=== PATIENT | female | born 1955 | race African-American/Black ===

== ENCOUNTER 2018-05-19 12:18 | Inpatient (IN) ==
[2018-05-19] MEDS ORDERED: Adenosine Inj 6 MG/2 ML Syringe IV.PUSH ONE ×2 (12:41→13:11)
--- NOTE | 2018-05-19 13:18 | ED ---
HPI General Chief Complaint: Chest Pain Stated Complaint: Cardiac Time Seen by Provider: 05/19/18 12:35 History of Present Illness HPI narrative: 62-year-old -[place] female presented with palpitations started earlier today, denies any chest pain, no shortness of breath. Patient has history of renal failure, renal transplant in 2009, recently she is back on dialysis Sunday and Sunday, last dialysis done on Sunday. Patient presented with heart rate 150. I was called right away to see the patient. She was diagnosed with SVT and treated accordingly. Related Data Home Medications Medication Instructions Recorded Confirmed B complex-vitamin C-folic acid 1 tab PO DAILY 05/19/18 05/19/18 [Dialyvite] calcium acetate 0 mg DIRECTED 05/19/18 05/19/18 cinacalcet [Sensipar] 0 mg PO DAILY 05/19/18 05/19/18 clonidine HCl 0.1 mg PO PRN 05/19/18 05/19/18 diltiazem HCl 180 mg PO DAILY 05/19/18 05/19/18 furosemide 40 mg PO DAILY PRN 05/19/18 05/19/18 lisinopril 20 mg PO DAILY 05/19/18 05/19/18 metoprolol tartrate 100 mg PO BID 05/19/18 05/19/18 minoxidil 0 mg PO BID 05/19/18 05/19/18 sevelamer carbonate [Renvela] 800 mg PO QID 05/19/18 05/19/18 warfarin 10 mg PO DAILY 05/19/18 05/19/18 Allergies Allergy/AdvReac Type Severity Reaction Status Date / Time adhesive Allergy Severe BLISTERS Unverified 05/19/18 12:45 chlorpheniramine Allergy Severe Hives Unverified 05/19/18 12:45 Review of Systems ROS: all other systems reviewed are negative Cardiovascular Reports palpitations PMFSH Medical History Medical History Acute renal failure on dialysis (Acute) Afib (Acute) CHF (congestive heart failure) (Acute) Kidney transplant complication (Acute) Social History Social History Substance History: No History of Abuse Second Hand Smoke Exposure: No Smoking Status: Never smoker How Often Do You Have a Drink Containing Alcohol: Never Recent Travel in [facility] within the Last 8 Weeks: No Recent Out of Country Travel within the Last 8 Weeks: No Immunization History Tetanus Immunization: Unsure Hx Influenza Vaccine This Season: No Exam Narrative Exam Narrative: GENERAL: 62 years old female with tachycardia SKIN: Focused skin assessment warm/dry. HEAD: Atraumatic. Normocephalic. EYES: Pupils equal and round. No scleral icterus. No injection or drainage. ENT: No nasal bleeding or discharge. Mucous membranes pink and moist. NECK: Trachea midline. No JVD. CARDIOVASCULAR: Regular rate and rhythm. No murmur appreciated. RESPIRATORY: No accessory muscle use. Clear to auscultation. Breath sounds equal bilaterally. GASTROINTESTINAL: Abdomen soft, non-tender, nondistended. Hepatic and splenic margins not palpable. MUSCULOSKELETAL: No obvious deformities. No clubbing. No cyanosis. No edema. NEUROLOGICAL: Awake and alert. No obvious cranial nerve deficits. Motor grossly within normal limits. Normal speech. PSYCHIATRIC: Appropriate mood and affect; insight and judgment normal. Course Initial Documented Vital Signs Temperature 98.2 F 05/19/18 12:23 Pulse Rate 156 H 05/19/18 12:23 Respiratory Rate 18 05/19/18 12:23 Blood Pressure 116/73 05/19/18 12:23 Pulse Oximetry 97 05/19/18 12:23 Last Documented Vital Signs Temperature 98 F 05/19/18 12:26 Pulse Rate 91 H 05/19/18 15:32 Respiratory Rate 18 05/19/18 15:32 Blood Pressure 160/98 H 05/19/18 15:32 Pulse Oximetry 98 05/19/18 15:32 Medical Decision Making [facility] Narrative Medical decision making narrative: adenosine for SVT conversion Blood work Repeated EKG Evaluation Labs noted, patient has borderline troponin 0.06, chest pain resolved Case discussed with Dr. Campos agreed to admit the patient Medical Screen Exam Complete: Yes Emergency Medical Condition: Yes Differential Diagnosis Differential Diagnosis: Supraventricular tachycardia rule out NC Lab Data Result diagrams: 05/19/18 13:23 05/19/18 13:23 Lab Results 05/19/18 05/19/18 05/19/18 Range/Units 13:23 13:23 13:23 WBC 4.6 (4.0-11.0) th/mm3 RBC 3.50 L (4.00-5.30) mil/mm3 Hgb 11.1 L (11.6-15.3) gm/dL Hct 33.2 L (35.0-46.0) % MCV 95.1 (80.0-100.0) fL MCH 31.8 (27.0-34.0) pg MCHC 33.4 (32.0-36.0) % RDW 14.2 (11.6-17.2) % Plt Count 168 (150-450) th/mm3 MPV 8.1 (7.0-11.0) fL Neut % (Auto) 49.7 (16.0-70.0) % Lymph % (Auto) 34.2 (9.0-44.0) % Larue % (Auto) 5.5 (0.0-8.0) % Eos % (Auto) 9.7 H (0.0-4.0) % Baso % (Auto) 0.9 (0.0-2.0) % Neut # (Auto) 2.3 (1.8-7.7) th/mm3 Lymph # (Auto) 1.6 (1.0-4.8) th/mm3 Larue # (Auto) 0.3 (0.0-0.9) th/mm3 Eos # (Auto) 0.4 (0.0-0.4) th/mm3 Baso # (Auto) 0.0 (0.0-0.2) th/mm3 WBC Differential . Differential Comment Auto diff final PT 10.8 (9.8-11.6) sec INR 1.1 Ratio APTT 25.4 (24.3-30.1) sec Sodium 142 (136-145) meq/L Potassium 3.7 (3.5-5.1) meq/L Chloride 101 (98-107) meq/L Carbon Dioxide 25.7 (21.0-32.0) meq/L Anion Gap 15 (5-15) meq/L BUN 58 H (7-18) mg/dL Creatinine 10.17 H* (0.50-1.00) mg/dL Estimated GFR 5 L (>89) mL/min Random Glucose 104 (74-106) mg/dL Calcium 9.0 (8.5-10.1) mg/dL Total Bilirubin 0.7 (0.2-1.0) mg/dL AST 42 H (15-37) U/L ALT 34 (10-53) U/L Alkaline Phosphatase 96 (45-117) U/L Troponin I 0.06 H (0.02-0.05) ng/mL B-Natriuretic Peptide (0-100) pg/mL Total Protein 7.5 (6.4-8.2) g/dL Albumin 3.6 (3.4-5.0) g/dL 05/19/18 Range/Units 13:23 WBC (4.0-11.0) th/mm3 RBC (4.00-5.30) mil/mm3 Hgb (11.6-15.3) gm/dL Hct (35.0-46.0) % MCV (80.0-100.0) fL MCH (27.0-34.0) pg MCHC (32.0-36.0) % RDW (11.6-17.2) % Plt Count (150-450) th/mm3 MPV (7.0-11.0) fL Neut % (Auto) (16.0-70.0) % Lymph % (Auto) (9.0-44.0) % Larue % (Auto) (0.0-8.0) % Eos % (Auto) (0.0-4.0) % Baso % (Auto) (0.0-2.0) % Neut # (Auto) (1.8-7.7) th/mm3 Lymph # (Auto) (1.0-4.8) th/mm3 Larue # (Auto) (0.0-0.9) th/mm3 Eos # (Auto) (0.0-0.4) th/mm3 Baso # (Auto) (0.0-0.2) th/mm3 WBC Differential Differential Comment PT (9.8-11.6) sec INR Ratio APTT (24.3-30.1) sec Sodium (136-145) meq/L Potassium (3.5-5.1) meq/L Chloride (98-107) meq/L Carbon Dioxide (21.0-32.0) meq/L Anion Gap (5-15) meq/L BUN (7-18) mg/dL Creatinine (0.50-1.00) mg/dL Estimated GFR (>89) mL/min Random Glucose (74-106) mg/dL Calcium (8.5-10.1) mg/dL Total Bilirubin (0.2-1.0) mg/dL AST (15-37) U/L ALT (10-53) U/L Alkaline Phosphatase (45-117) U/L Troponin I (0.02-0.05) ng/mL B-Natriuretic Peptide 279 H (0-100) pg/mL Total Protein (6.4-8.2) g/dL Albumin (3.4-5.0) g/dL Imaging Data Radiologist's impression: Chest X-Ray 05/19/18 13:11 CONCLUSION: Clear lungs. Discharge Plan Discharge Disposition Patient Disposition: 30 Still Patient Discharge Condition Condition: Fair Discharge Details Discharge Comment: Patient presented with chest pain, borderline troponin, placed on observation under Dr. Hogan. Diagnosis: Atypical chest pain, SVT (supraventricular tachycardia), End stage chronic kidney disease Physicians Team ED Provider: Derick Suero Primary Care Provider: Marcus Campos Attending Provider: Marcus Campos Status ED Status: Discharged Discharge Information Discharge Date/Time: 05/19/18 17:35
[2018-05-19 13:43] LABS: Baso % (Auto) 0.9 % (0.0-2.0); Eos # (Auto) 0.4 th/mm3 (0.0-0.4); Eos % (Auto) 9.7 % (0.0-4.0); Hematocrit 33.2 % (35.0-46.0); Hemoglobin 11.1 gm/dL (11.6-15.3); Lymph # (Auto) 1.6 th/mm3 (1.0-4.8); Lymph % (Auto) 34.2 % (9.0-44.0); Mean Corpuscular HGB Conc 33.4 % (32.0-36.0); Mean Corpuscular Hemoglobin 31.8 pg (27.0-34.0); Mean Corpuscular Volume 95.1 fL (80.0-100.0); Mean Platelet Volume 8.1 fL (7.0-11.0); Mono # (Auto) 0.3 th/mm3 (0.0-0.9); Mono % (Auto) 5.5 % (0.0-8.0); Neut # (Auto) 2.3 th/mm3 (1.8-7.7); Neut % (Auto) 49.7 % (16.0-70.0); Platelet Count 168 th/mm3 (150-450); Red Cell Distribution Width 14.2 % (11.6-17.2); White Blood Count 4.6 th/mm3 (4.0-11.0)
[2018-05-19 13:53] LABS: Activated Partial Thrombo Time 25.4 sec (24.3-30.1); INR 1.1 Ratio; Prothrombin Time 10.8 sec (9.8-11.6)
--- NOTE | 2018-05-19 13:58 | XR ---
EXAM DATE: 05/19/2018 1:52 PM EDT AGE/SEX: 62 years / Female INDICATIONS: Chest pain. CLINICAL DATA: This is the patient's initial encounter. Patient reports that signs and symptoms have been present for 1 day and indicates a pain score of 0/10. MEDICAL/SURGICAL HISTORY: Congestive heart failure. None. COMPARISON: [facility] [place], CHEST SINGLE AP, 06/11/2016. . FINDINGS: Cardiomegaly. Calcified left AP window lymph nodes. Lungs are clear. Osseous structures are intact. CONCLUSION: Clear lungs. Electronically signed by: Alexandre Suazo MD 05/19/2018 1:57 PM EDT
[2018-05-19 14:02] LABS: Alanine Aminotransferase 34 U/L (10-53); Albumin 3.6 g/dL (3.4-5.0); Anion Gap 15 meq/L (5-15); Aspartate Aminotransferase 42 U/L (15-37); Blood Urea Nitrogen 58 mg/dL (7-18); Carbon Dioxide 25.7 meq/L (21.0-32.0); Chloride 101 meq/L (98-107); Glomerular Filtration Rate 5 mL/min (>89); Glucose,Random 104 mg/dL (74-106); Potassium 3.7 meq/L (3.5-5.1); Sodium 142 meq/L (136-145)
[2018-05-19 14:06] LABS: Alkaline Phosphatase 96 U/L (45-117); Total Protein 7.5 g/dL (6.4-8.2); Troponin I 0.06 ng/mL (0.02-0.05)
[2018-05-19] MEDS ORDERED: cloNIDine Susp (NICU) 20 MCG/ML 30 ML Bottle PO SCH (17:00)
[2018-05-19] MEDS ORDERED: Acetaminophen 325 MG Tablet PO PRN (18:06)
[2018-05-19] MEDS ORDERED: Bisacodyl 10 MG Supp RECTAL PRN (18:06)
[2018-05-19] MEDS: Calcium Acetate 667 MG Capsule PO SCH (18:30)
--- NOTE | 2018-05-19 18:47 | P.HPIM ---
History of Present Illness Service: [facility] Primary Care Physician: Marcus Campos DO Chief Complaint: heart racing History of Present Illness: This patient is a 60-year-old female who had a past medical history ESRD with kidney transplant, on hemodialysis every Sunday and Sunday, congestive heart failure with EF of 60-65% on 2D echo in August 2015, atrial fibrillation, and hypertension who presented to the emergency room with a complaint of racing heart, atrial fibrillation. Patient stated that her heart was decided to race with her not doing anything just sitting down. Patient stated this happened before last December while she was asleep and awoken with heart racing. This event also happened again in March. Patient denies any chest pain or shortness of breath and test at that time and just complaint of heart racing. Patient states that she is a dialysis patient, had a kidney transplant in 2009 that was implanted on the right side. At this time the resin remover is working her out for another kidney transplant and was scheduled for an elective heart catheterization for Sunday as part of the evaluation and requirement for the transplant. Patient is a hemodialysis patient on Wednesdays and Fridays. She has been managed by the resin remover Dr. Mayer. Her parts room assistant is Dr. Chavez. Patient seen and examined with Dr. Vernon in the room. Patient denies any heart racing at this time denies any pain, chest pain or shortness of breath, denies any nausea or vomiting, denies any headache or dizziness. Patient denies any fever chills - Diagnosis (1) Atrial fibrillation (2) Congestive heart failure (CHF) (3) Hypertension (4) Chronic kidney disease with in-center hemodialysis preferred by patient (5) History of kidney transplant Inpatient Certification: I certify that the inpatient services were ordered in accordance with Medicare regulations governing the order. This includes certification that hospital inpatient services are reasonable and necessary and in the case of services not specified as inpatient-only under 42 CFR 419.22(n), that they are appropriately provided as inpatient services in accordance to with the 2-midnight benchmark under 43 CFR 412.3(e) Estimated Total Length of Stay (Days): 3 Plans for Post Hospital Care: Home Review of Systems All other systems reviewed negative except as stated in [facility] - History History Provided By: Patient - Medical History Medical History: Medical History (Last Updated 05/19/18 @ 18:27 by CARLOTA Gonzalez) Acute renal failure on dialysis Afib CHF (congestive heart failure) Fistula Hypertension Kidney transplant complication - Surgical History Surgical History: Surgical History (Last Updated 05/19/18 @ 18:27 by CARLOTA Gonzalez) Kidney transplant recipient - Family History Family History: Family History (Last Updated 05/19/18 @ 18:28 by CARLOTA Gonzalez) Mother Stroke Heart attack ESRD on dialysis - Social History I have reviewed the patient's Social History: Yes - Tobacco History Second Hand Smoke Exposure: No Tobacco Use In Past 30 Days: No Smoking Status: Never smoker - Alcohol History How Often Do You Have a Drink Containing Alcohol: Never - Substance Use History Substance History: No History of Abuse - Travel History Recent Travel in the [place] Within the Last 8 Weeks: No Recent Travel Out of the Country Within the Last 8 Weeks: No - Immunization History Tetanus Immunization: Unsure Hx Influenza Vaccine This Season: No Medications and Allergies Active Medications: Active Medications Acetaminophen (Tylenol) 650 mg PO Q4H PRN PRN Reason: Temp > 100.4 Al Hydroxide/Mg Hydroxide (Milk Of Magnesia Liq) 30 ml PO Q12H PRN PRN Reason: Mild Constipation Bisacodyl (Dulcolax Supp) 10 mg RECTAL DAILY PRN PRN Reason: SEVERE CONSITIPATION Calcium Acetate (Phoslo) 667 mg PO TID [facility] Cinacalcet (Sensipar) 30 mg PO DAILY [facility] Clonidine HCl (Clonidine (Nicu) 20 Mcg/Ml Liq) 100 mcg PO PRN [facility] Diltiazem HCl (Cardizem Cd 24hr) 180 mg PO DAILY [facility] Lactulose (Lactulose Liq) 30 ml PO DAILY PRN PRN Reason: SEVERE CONSITIPATION Lisinopril (Prinivil) 20 mg PO DAILY [facility] Metoprolol Tartrate (Lopressor) 100 mg PO BID [facility] Minoxidil (Loniten) 10 mg PO BID [facility] Ondansetron HCl (Zofran Inj) 4 mg IV.PUSH Q6H PRN PRN Reason: NAUSEA OR VOMITING Sennosides (Senokot) 17.2 mg PO Q12H PRN PRN Reason: Moderate Constipation Sevelamer Carbonate (Renvela) 800 mg PO QID [facility] Sodium Chloride (Ns Flush) 2 ml IV.FLUSH UNSCH PRN PRN Reason: FLUSH AFTER USING IV ACCESS Vitamin B Complex/Vit C/Folic Acid (Nephrocaps) 1 tab PO DAILY [facility] Warfarin Sodium (Coumadin) 10 mg PO DAILY@1600 [facility] Allergies Allergy/AdvReac Type Severity Reaction Status Date / Time adhesive Allergy Severe BLISTERS Unverified 05/19/18 12:45 chlorpheniramine Allergy Severe Hives Unverified 05/19/18 12:45 Home Medications Medication Instructions Recorded Confirmed Type B complex-vitamin C-folic acid 1 tab PO DAILY 05/19/18 05/19/18 History [Dialyvite] calcium acetate 0 mg DIRECTED 05/19/18 05/19/18 History cinacalcet [Sensipar] 0 mg PO DAILY 05/19/18 05/19/18 History clonidine HCl 0.1 mg PO PRN 05/19/18 05/19/18 History diltiazem HCl 180 mg PO DAILY 05/19/18 05/19/18 History furosemide 40 mg PO DAILY PRN 05/19/18 05/19/18 History lisinopril 20 mg PO DAILY 05/19/18 05/19/18 History metoprolol tartrate 100 mg PO BID 05/19/18 05/19/18 History minoxidil 0 mg PO BID 05/19/18 05/19/18 History sevelamer carbonate [Renvela] 800 mg PO QID 05/19/18 05/19/18 History warfarin 10 mg PO DAILY 05/19/18 05/19/18 History Exam Vital signs: Vital Signs 05/19/18 12:23 05/19/18 12:26 05/19/18 12:46 Temperature 98.2 F 98 F Pulse Rate 156 H 149 H 97 H Respiratory Rate 18 20 18 Blood Pressure 116/73 157/96 H Pulse Oximetry 97 91 L 100 05/19/18 14:32 05/19/18 15:32 Temperature Pulse Rate 94 H 91 H Respiratory Rate 18 18 Blood Pressure 156/99 H 160/98 H Pulse Oximetry 100 98 Intake & Output 05/18/18 05/19/18 05/19/18 18:59 06:59 18:59 Weight 56.699 kg Narrative: GENERAL: Well-developed well-nourished -[place] lady, alert and oriented 3, in no apparent distress SKIN: Warm and dry. HEAD: Atraumatic. Normocephalic. EYES: Pupils equal and round. No scleral icterus. No injection or drainage. ENT: No nasal bleeding or discharge. Mucous membranes pink and moist. NECK: Trachea midline. No JVD. CARDIOVASCULAR: Regular rate and rhythm. RESPIRATORY: No accessory muscle use. Clear to auscultation. Breath sounds equal bilaterally. GASTROINTESTINAL: Abdomen soft, non-tender, nondistended. Hepatic and splenic margins not palpable. MUSCULOSKELETAL: Extremities without clubbing, cyanosis, or edema. No obvious deformities. NEUROLOGICAL: Awake and alert. No obvious cranial nerve deficits. Motor grossly within normal limits. Five out of 5 muscle strength in the arms and legs. Normal speech. PSYCHIATRIC: Appropriate mood and affect; insight and judgment normal. Results - Labs CBC & Chem 7: 05/19/18 13:23 05/19/18 13:23 Labs: Short CBC 05/19/18 Range/Units 13:23 WBC 4.6 (4.0-11.0) th/mm3 Hgb 11.1 L (11.6-15.3) gm/dL Hct 33.2 L (35.0-46.0) % Plt Count 168 (150-450) th/mm3 BMP 05/19/18 13:23 Sodium 142 Potassium 3.7 Chloride 101 Carbon Dioxide 25.7 BUN 58 H Creatinine 10.17 H* Calcium 9.0 Cardiac Enzymes 05/19/18 Range/Units 13:23 Troponin I 0.06 H (0.02-0.05) ng/mL Liver Function 05/19/18 Range/Units 13:23 Total Bilirubin 0.7 (0.2-1.0) mg/dL AST 42 H (15-37) U/L ALT 34 (10-53) U/L Alkaline Phosphatase 96 (45-117) U/L Albumin 3.6 (3.4-5.0) g/dL - Imaging Impressions Chest X-Ray 05/19/18 13:11 CONCLUSION: Clear lungs. Caprini VTE Risk Assessment Caprini VTE Risk Assessment: Moderate/High Risk (score >= 2) (on coumadin) Caprini Risk Assessment Model: Point Value = 1 Point Value = 2 Point Value = 3 Point Value = 5 Age 41-60 Minor surgery BMI > 25 kg/m2 Swollen legs Varicose veins or History of unexplained or recurrent spontaneous Oral contraceptives or hormone replacement Sepsis (< 1 month) Serious lung disease, including pneumonia (< 1 month) Abnormal pulmonary function Acute myocardial infarction Congestive heart failure (< 1 month) History of inflammatory bowel disease Medical patient at bed rest Age 61-74 Arthroscopic surgery Major open surgery (> 45 min) Laparoscopic surgery (> 45 min) Malignancy Confined to bed (> 72 hours) Immobilizing plaster cast Central venous access Age >= 75 History of VTE Family history of VTE Factor V Leiden Prothrombin [id number] Lupus anticoagulant Anticardiolipin antibodies Elevated serum homocysteine Heparin-induced thrombocytopenia Other congenital or acquired thrombophilia Stroke (< 1 month) Elective arthroplasty Hip, pelvis, or leg fracture Acute spinal cord injury (< 1 month) Prophylaxis Regimen: Total Risk Factor Score Risk Level Prophylaxis Regimen 0-1 Low Early ambulation 2 Moderate Order ONE of the following: *Sequential Compression Device (SCD) *Heparin 5000 units SQ BID 3-4 Higher Order ONE of the following medications: *Heparin 5000 units SQ TID *Enoxaparin/Lovenox 40 mg SQ daily (WT < 150 kg, CrCl > 30 mL/min) *Enoxaparin/Lovenox 30 mg SQ daily (WT < 150 kg, CrCl > 10-29 mL/min) *Enoxaparin/Lovenox 30 mg SQ BID (WT < 150 kg, CrCl > 30 mL/min) AND/OR *Sequential Compression Device (SCD) 5 or more Highest Order ONE of the following medications: *Heparin 5000 units SQ TID (Preferred with Epidurals) *Enoxaparin/Lovenox 40 mg SQ daily (WT < 150 kg, CrCl > 30 mL/min) *Enoxaparin/Lovenox 30 mg SQ daily (WT < 150 kg, CrCl > 10-29 mL/min) *Enoxaparin/Lovenox 30 mg SQ BID (WT < 150 kg, CrCl > 30 mL/min) AND *Sequential Compression Device (SCD) Assessment and Plan - Assessment (1) Atrial fibrillation Code(s): I48.91 - Unspecified atrial fibrillation Status: Acute (2) Congestive heart failure (CHF) Code(s): I50.9 - Heart failure, unspecified Status: Acute (3) Hypertension Code(s): I10 - Essential (primary) hypertension Status: Acute (4) Chronic kidney disease with in-center hemodialysis preferred by patient Code(s): N18.9 - Chronic kidney disease, unspecified Status: Acute (5) History of kidney transplant Code(s): Z94.0 - Kidney transplant status Status: Acute - Plan This patient is a 60-year-old female who had a past medical history ESRD with kidney transplant, on hemodialysis every Sunday and Sunday, congestive heart failure with EF of 60-65% on 2D echo in August 2015, atrial fibrillation, and hypertension who presented to the emergency room with a complaint of racing heart, atrial fibrillation. Patient also is a dialysis patient, had a kidney transplant in 2009 that was implanted on the right side. At this time the resin remover is working her out for another kidney transplant and was scheduled for an elective heart catheterization for Sunday as part of the evaluation and requirement for the transplant. Patient is a hemodialysis patient on Wednesdays and Fridays. She has been managed by the resin remover Dr. Mayer. Medicine team was consulted for medical management Atrial fibrillation Unspecified atrial fibrillation, Acute -Continue diltiazem -Check troponin in a.m. -Check EKG, monitoring telemetry -Anticoagulation with Coumadin, monitor daily INR Congestive heart failure (CHF) Heart failure, unspecified, Acute on chronic EF 60-65% in last 2D Echo 09/2015 Hypertension Likely related to kidney disease -Monitor blood pressure -Continue clonidine, Cardizem, lisinopril, metoprolol Chronic kidney disease with in-center hemodialysis preferred by patient/History of kidney transplant Chronic kidney disease, unspecified, Acute on chronic -Consult nephrology, Dr Mayer -Scheduled for hemodialysis in the morning and continue scheduled Sunday, Sunday and Sunday -Monitor BMP -Avoid nephrotoxic agents -Continue home medications DVT prophylaxis: On Coumadin, increase ambulation Code Status: Full code Discussed Condition With: Patient and family, nurse, and Dr. Vernon Discharge Planning: If cardiac status stable we will plan to DC after dialysis tomorrow after seen by Dr. Velarde
[2018-05-19 19:34] LABS: Baso % (Auto) 0.6 % (0.0-2.0); Eos # (Auto) 0.4 th/mm3 (0.0-0.4); Eos % (Auto) 8.4 % (0.0-4.0); Hematocrit 27.3 % (35.0-46.0); Hemoglobin 9.1 gm/dL (11.6-15.3); Lymph # (Auto) 1.4 th/mm3 (1.0-4.8); Lymph % (Auto) 29.9 % (9.0-44.0); Mean Corpuscular HGB Conc 33.4 % (32.0-36.0); Mean Corpuscular Hemoglobin 31.7 pg (27.0-34.0); Mean Platelet Volume 7.8 fL (7.0-11.0); Mono # (Auto) 0.4 th/mm3 (0.0-0.9); Mono % (Auto) 8.6 % (0.0-8.0); Neut # (Auto) 2.4 th/mm3 (1.8-7.7); Neut % (Auto) 52.5 % (16.0-70.0); Platelet Count 132 th/mm3 (150-450); Red Blood Count 2.88 mil/mm3 (4.00-5.30); Red Cell Distribution Width 14.1 % (11.6-17.2); White Blood Count 4.5 th/mm3 (4.0-11.0)
[2018-05-19 19:41] LABS: INR 1.1 Ratio; Prothrombin Time 11.3 sec (9.8-11.6)
[2018-05-19] MEDS: Minoxidil 10 MG Tablet PO SCH (20:12)
[2018-05-19] MEDS: Metoprolol Tartrate 100 MG Tablet PO SCH (20:12)
[2018-05-20 01:16] LABS: Calcium 8.3 mg/dL (8.5-10.1); Carbon Dioxide 29.2 meq/L (21.0-32.0); Magnesium 2.5 mg/dL (1.5-2.5); Potassium 4.4 meq/L (3.5-5.1); Thyroid Stimulating Hormone 0.992 uIU/mL (0.358-3.740); Troponin I 0.13 ng/mL (0.02-0.05)
[2018-05-20 07:31] LABS: INR 1.1 Ratio; Prothrombin Time 10.9 sec (9.8-11.6)
[2018-05-20] MEDS ORDERED: Gelatin 12 MM/7 MM Topical Foam TOPICAL PRN (08:14)
[2018-05-20] MEDS ORDERED: Heparin 10,000 UNITS/10 ML Vial (for IV use) OTHER PRN ×2 (08:14)
[2018-05-20] MEDS ORDERED: Sod Chloride 0.9% Inj 1,000 ML IV.CONT PRN (08:14)
[2018-05-20] MEDS ORDERED: Acetaminophen 325 MG Tablet PO PRN (08:14)
[2018-05-20] MEDS ORDERED: Sod Chloride 0.9% Inj 1,000 ML OTHER PRN ×2 (08:14)
[2018-05-20] MEDS ORDERED: Albumin Human 25% Inj 100 ML IV.SIG PRN (08:14)
[2018-05-20] MEDS ORDERED: B COMPLEX VITAMIN C FOLIC ACID PO SCH (09:00)
[2018-05-20] MEDS: Vitamin B Complex/Vit C/Folic Tablet PO SCH (09:19)
[2018-05-20] MEDS: Metoprolol Tartrate 100 MG Tablet PO SCH ×2 (09:19→20:11)
[2018-05-20] MEDS: dilTIAZem CD 180 MG Capsule PO SCH (09:19)
[2018-05-20] MEDS: Calcium Acetate 667 MG Capsule PO SCH ×3 (09:20→18:47)
[2018-05-20] MEDS: Lisinopril 20 MG Tablet PO SCH (09:20)
[2018-05-20] MEDS: Minoxidil 10 MG Tablet PO SCH ×2 (09:20→20:11)
--- NOTE | 2018-05-20 09:25 | P.HPFP ---
History of Present Illness Primary Care Physician: Marcus Campos DO Chief Complaint: heart racing History of Present Illness: This patient is a 60-year-old female known to our office who had a past medical history ESRD with kidney transplant, on hemodialysis every Sunday and Sunday, congestive heart failure with EF of 60-65% on 2D echo in August 2015, atrial fibrillation, and hypertension who presented to the emergency room with a complaint of racing heart, atrial fibrillation. She voices she was sleeping having a bad dream and awoke with her fast heart rate, that did not subside. She denies any Chest pain or sob. She is scheduled for Heart Cath on Sunday05/21/18 here at [facility] with Dr Chavez, as part of clearance for upcoming kidney transplant - Diagnosis (1) SVT (supraventricular tachycardia) (2) Atrial fibrillation (3) End stage chronic kidney disease (4) Congestive heart failure (CHF) (5) Hypertension Inpatient Certification: I certify that the inpatient services were ordered in accordance with Medicare regulations governing the order. This includes certification that hospital inpatient services are reasonable and necessary and in the case of services not specified as inpatient-only under 42 CFR 419.22(n), that they are appropriately provided as inpatient services in accordance to with the 2-midnight benchmark under 43 CFR 412.3(e) Estimated Total Length of Stay (Days): 3 Plans for Post Hospital Care: [facility] - History History Provided By: Patient - Medical History Medical History: Medical History (Last Updated 05/19/18 @ 18:27 by CARLOTA Gonzalez) Acute renal failure on dialysis Afib CHF (congestive heart failure) Fistula Hypertension Kidney transplant complication - Surgical History Surgical History: Surgical History (Last Updated 05/19/18 @ 18:27 by CARLOTA Gonzalez) Kidney transplant recipient - Family History Family History: Family History (Last Updated 05/19/18 @ 18:28 by CARLOTA Gonzalez) Mother Stroke Heart attack ESRD on dialysis - Tobacco History Second Hand Smoke Exposure: No Tobacco Use In Past 30 Days: No Smoking Status: Never smoker - Alcohol History How Often Do You Have a Drink Containing Alcohol: Never - Substance Use History Substance History: No History of Abuse - Travel History Recent Travel in the [place] Within the Last 8 Weeks: No Recent Travel Out of the Country Within the Last 8 Weeks: No - Immunization History Tetanus Immunization: Unsure Hx Influenza Vaccine This Season: No Medications and Allergies Active Medications: Active Medications Acetaminophen (Tylenol) 650 mg PO Q4H PRN PRN Reason: Temp > 100.4 Acetaminophen (Tylenol) 650 mg PO UNSCH X1 PRN PRN Reason: SEE LABEL COMMENTS Al Hydroxide/Mg Hydroxide (Milk Of Magnesia Liq) 30 ml PO Q12H PRN PRN Reason: Mild Constipation Bisacodyl (Dulcolax Supp) 10 mg RECTAL DAILY PRN PRN Reason: SEVERE CONSITIPATION Calcium Acetate (Phoslo) 667 mg PO TID [facility] Last Admin: 05/19/18 18:30 Dose: 667 mg Cinacalcet (Sensipar) 30 mg PO DAILY [facility] Clonidine HCl (Clonidine (Nicu) 20 Mcg/Ml Liq) 100 mcg PO PRN [facility] Clonidine HCl (Catapres) 0.1 mg PO UNSCH X1 PRN PRN Reason: SEE LABEL COMMENTS Diltiazem HCl (Cardizem Cd 24hr) 180 mg PO DAILY [facility] Diphenhydramine HCl (Benadryl) 25 mg PO UNSCH PRN PRN Reason: SEE LABEL COMMENTS Epoetin Cruz (Epogen Inj) 10,000 unit IV.PUSH UNSCH PRN PRN Reason: SEE LABEL COMMENTS Gelatin (Gelfoam 12 Mm/7 Mm Topical) 1 foam TOPICAL UNSCH PRN PRN Reason: help stop bleeding from site Gentamicin Sulfate (Gentamicin Inj) 20 mg OTHER WITH DIALYSIS PRN PRN Reason: Dwell Gentamycin Lock Heparin Sodium (Porcine) (Heparin Inj) 8,000 units OTHER WITH DIALYSIS PRN PRN Reason: for machine prime Heparin Sodium (Porcine) (Heparin Inj) 0 units OTHER WITH DIALYSIS PRN PRN Reason: Dwell Heparin to Fill Catheter Albumin Human (Flexbumin 25% Inj) 100 mls @ 60 mls/hr IV.SIG WITH DIALYSIS PRN PRN Reason: hypotension / volume replace Sodium Chloride (Ns Inj) 1,000 mls @ 0 mls/hr OTHER .Q0M PRN PRN Reason: for prime and rinse back Sodium Chloride (Ns Inj) 1,000 mls @ 200 mls/hr OTHER .Q5H PRN PRN Reason: for dialyzer flush PRN Sodium Chloride (Ns Inj) 1,000 mls @ 0 mls/hr IV.CONT .Q0M PRN PRN Reason: hypotension / volume replace Lactulose (Lactulose Liq) 30 ml PO DAILY PRN PRN Reason: SEVERE CONSITIPATION Lidocaine HCl (L/M/X 4% Cream) 1 applicatio TOPICAL PRN PRN PRN Reason: PAIN SCALE 1 TO 10 Lisinopril (Prinivil) 20 mg PO DAILY [facility] Mannitol (Mannitol Inj) 12.5 gm IV.PUSH UNSCH PRN PRN Reason: hypotension / volume replace Metoprolol Tartrate (Lopressor) 100 mg PO BID [facility] Last Admin: 05/19/18 20:12 Dose: 100 mg Minoxidil (Loniten) 10 mg PO BID [facility] Last Admin: 05/19/18 20:12 Dose: 10 mg Nitroglycerin (Nitrostat Sl) 0.4 mg SL Q5M PRN PRN Reason: CHEST PAIN Ondansetron HCl (Zofran Inj) 4 mg IV.PUSH Q6H PRN PRN Reason: NAUSEA OR VOMITING Ondansetron HCl (Zofran Inj) 4 mg IV.PUSH UNSCH X1 PRN PRN Reason: NAUSEA OR VOMITING Sennosides (Senokot) 17.2 mg PO Q12H PRN PRN Reason: Moderate Constipation Sevelamer Carbonate (Renvela) 800 mg PO QID [facility] Last Admin: 05/19/18 20:12 Dose: 800 mg Sodium Chloride (Ns Flush) 2 ml IV.FLUSH UNSCH PRN PRN Reason: FLUSH AFTER USING IV ACCESS Sodium Chloride (Ns Flush) 5 ml IV.FLUSH UNSCH PRN PRN Reason: flush each lumen during HD Vitamin B Complex/Vit C/Folic Acid (Nephrocaps) 1 tab PO DAILY [facility] Warfarin Sodium (Coumadin) 10 mg PO DAILY@1600 [facility] Allergies Allergy/AdvReac Type Severity Reaction Status Date / Time adhesive Allergy Severe BLISTERS Verified 05/19/18 20:06 chlorpheniramine Allergy Severe Hives Verified 05/19/18 20:06 Home Medications Medication Instructions Recorded Confirmed Type B complex-vitamin C-folic acid 1 tab PO DAILY 05/19/18 05/19/18 History [Dialyvite] calcium acetate 0 mg DIRECTED 05/19/18 05/19/18 History cinacalcet [Sensipar] 0 mg PO DAILY 05/19/18 05/19/18 History clonidine HCl 0.1 mg PO PRN 05/19/18 05/19/18 History diltiazem HCl 180 mg PO DAILY 05/19/18 05/19/18 History furosemide 40 mg PO DAILY PRN 05/19/18 05/19/18 History lisinopril 20 mg PO DAILY 05/19/18 05/19/18 History metoprolol tartrate 100 mg PO BID 05/19/18 05/19/18 History minoxidil 0 mg PO BID 05/19/18 05/19/18 History sevelamer carbonate [Renvela] 800 mg PO QID 05/19/18 05/19/18 History warfarin 10 mg PO DAILY 05/19/18 05/19/18 History Exam Vital signs: Vital Signs 05/19/18 12:23 05/19/18 12:26 05/19/18 12:46 Temperature 98.2 F 98 F Pulse Rate 156 H 149 H 97 H Respiratory Rate 18 20 18 Blood Pressure 116/73 157/96 H Pulse Oximetry 97 91 L 100 05/19/18 14:32 05/19/18 15:32 05/19/18 18:00 Temperature 99.1 F Pulse Rate 94 H 91 H 81 Respiratory Rate 18 18 20 Blood Pressure 156/99 H 160/98 H 196/108 H Pulse Oximetry 100 98 96 05/19/18 20:00 05/20/18 00:00 05/20/18 04:00 Temperature 97.5 F L 98.4 F 97.3 F L Pulse Rate 90 69 69 Respiratory Rate 18 18 18 Blood Pressure 196/119 H 158/98 H 168/92 H Pulse Oximetry 96 96 95 Intake & Output 05/19/18 05/20/18 05/20/18 18:59 06:59 18:59 Weight 59 kg 60.7 kg Other: # Voids 2 Weight On Admission 59 kg - Constitutional no acute distress - Routine HEENT Exam Eye: Present: PERRL ENT: Present: mucous membranes moist Comments: post nasal drip - Routine Neck Exam Present: supple - Routine Respiratory Exam Present: CTA bilaterally - Routine Cardiovascular Exam Present: S1, S2 - Routine Abdominal Exam Present: soft, normoactive bowel sounds - Routine Extremities Exam Present: pulses intact - Routine Skin Exam Present: dry, warm - Routine Neurological Exam Present: alert, oriented X3 Results - Labs Result diagrams: 05/19/18 19:14 05/20/18 00:27 Abnormal lab results 05/19/18 05/19/18 05/19/18 Range/Units 13:23 13:23 13:23 RBC 3.50 L (4.00-5.30) mil/mm3 Hgb 11.1 L (11.6-15.3) gm/dL Hct 33.2 L (35.0-46.0) % Plt Count (150-450) th/mm3 [place] % (Auto) (0.0-8.0) % Eos % (Auto) 9.7 H (0.0-4.0) % BUN 58 H (7-18) mg/dL Creatinine 10.17 H* (0.50-1.00) mg/dL Estimated GFR 5 L (>89) mL/min Calcium (8.5-10.1) mg/dL AST 42 H (15-37) U/L Troponin I 0.06 H (0.02-0.05) ng/mL B-Natriuretic Peptide 279 H (0-100) pg/mL 05/19/18 05/19/18 05/20/18 Range/Units 19:14 19:14 00:27 RBC 2.88 L (4.00-5.30) mil/mm3 Hgb 9.1 L D (11.6-15.3) gm/dL Hct 27.3 L (35.0-46.0) % Plt Count 132 L (150-450) th/mm3 [place] % (Auto) 8.6 H (0.0-8.0) % Eos % (Auto) 8.4 H (0.0-4.0) % BUN 66 H (7-18) mg/dL Creatinine 11.18 H* D (0.50-1.00) mg/dL Estimated GFR 4 L (>89) mL/min Calcium 8.3 L (8.5-10.1) mg/dL AST (15-37) U/L Troponin I 0.12 H 0.13 H (0.02-0.05) ng/mL B-Natriuretic Peptide (0-100) pg/mL Short CBC 05/19/18 05/19/18 Range/Units 13:23 19:14 WBC 4.6 4.5 (4.0-11.0) th/mm3 Hgb 11.1 L 9.1 L D (11.6-15.3) gm/dL Hct 33.2 L 27.3 L (35.0-46.0) % Plt Count 168 132 L (150-450) th/mm3 BMP 05/19/18 05/20/18 13:23 00:27 Sodium 142 143 Potassium 3.7 4.4 Chloride 101 102 Carbon Dioxide 25.7 29.2 BUN 58 H 66 H Creatinine 10.17 H* 11.18 H* D Calcium 9.0 8.3 L Cardiac Enzymes 05/19/18 05/19/18 05/20/18 Range/Units 13:23 19:14 00:27 Troponin I 0.06 H 0.12 H 0.13 H (0.02-0.05) ng/mL Liver Function 05/19/18 Range/Units 13:23 Total Bilirubin 0.7 (0.2-1.0) mg/dL AST 42 H (15-37) U/L ALT 34 (10-53) U/L Alkaline Phosphatase 96 (45-117) U/L Albumin 3.6 (3.4-5.0) g/dL - Imaging Impressions Chest X-Ray 05/19/18 13:11 CONCLUSION: Clear lungs. Caprini VTE Risk Assessment Caprini VTE Risk Assessment: Moderate/High Risk (score >= 2) (on coumadin) Caprini Risk Assessment Model: Point Value = 1 Point Value = 2 Point Value = 3 Point Value = 5 Age 41-60 Minor surgery BMI > 25 kg/m2 Swollen legs Varicose veins or History of unexplained or recurrent spontaneous Oral contraceptives or hormone replacement Sepsis (< 1 month) Serious lung disease, including pneumonia (< 1 month) Abnormal pulmonary function Acute myocardial infarction Congestive heart failure (< 1 month) History of inflammatory bowel disease Medical patient at bed rest Age 61-74 Arthroscopic surgery Major open surgery (> 45 min) Laparoscopic surgery (> 45 min) Malignancy Confined to bed (> 72 hours) Immobilizing plaster cast Central venous access Age >= 75 History of VTE Family history of VTE Factor V Leiden Prothrombin [id number] Lupus anticoagulant Anticardiolipin antibodies Elevated serum homocysteine Heparin-induced thrombocytopenia Other congenital or acquired thrombophilia Stroke (< 1 month) Elective arthroplasty Hip, pelvis, or leg fracture Acute spinal cord injury (< 1 month) Prophylaxis Regimen: Total Risk Factor Score Risk Level Prophylaxis Regimen 0-1 Low Early ambulation 2 Moderate Order ONE of the following: *Sequential Compression Device (SCD) *Heparin 5000 units SQ BID 3-4 Higher Order ONE of the following medications: *Heparin 5000 units SQ TID *Enoxaparin/Lovenox 40 mg SQ daily (WT < 150 kg, CrCl > 30 mL/min) *Enoxaparin/Lovenox 30 mg SQ daily (WT < 150 kg, CrCl > 10-29 mL/min) *Enoxaparin/Lovenox 30 mg SQ BID (WT < 150 kg, CrCl > 30 mL/min) AND/OR *Sequential Compression Device (SCD) 5 or more Highest Order ONE of the following medications: *Heparin 5000 units SQ TID (Preferred with Epidurals) *Enoxaparin/Lovenox 40 mg SQ daily (WT < 150 kg, CrCl > 30 mL/min) *Enoxaparin/Lovenox 30 mg SQ daily (WT < 150 kg, CrCl > 10-29 mL/min) *Enoxaparin/Lovenox 30 mg SQ BID (WT < 150 kg, CrCl > 30 mL/min) AND *Sequential Compression Device (SCD) Assessment and Plan - Assessment (1) SVT (supraventricular tachycardia) Code(s): I47.1 - Supraventricular tachycardia Status: Acute Plan: resolved, rate controlled cardiac monitoring (2) Atrial fibrillation Code(s): I48.91 - Unspecified atrial fibrillation Status: Acute Plan: cont Cardizem, on Coumadin monitor INR cardiac monitoring. Scheduled for HC in am Troponin 0.6, 0.12, 0.13 (3) End stage chronic kidney disease Code(s): N18.6 - End stage renal disease Status: Acute Plan: HD today, renal consult (4) Congestive heart failure (CHF) Code(s): I50.9 - Heart failure, unspecified Status: Acute (5) Hypertension Code(s): I10 - Essential (primary) hypertension Status: Acute Plan: Cont home medications H&P: Quality - VTE Deep Vein Thrombosis/Pulmonary Embolism Present on Admission: No
--- NOTE | 2018-05-20 09:49 | P.CONNP ---
History of Present Illness Service: Nephrology Reason for Consult: ESRD Primary Care Provider: Marcus Campos DO Family Provider: Jeffrey Tobar MD Chief Complaint: heart racing History of Present Illness: This is a 62 year old s/p renal transplant in 2009 that failed approximately 2 years ago has been admitted with complaints of palpitations. She does have history of atrial fibrillation, on Coumadin, but she had stopped taking Coumadin because she was scheduled for cardiac cath tomorrow. Patient denies any chest pain or palpitations currently. She is due for dialysis today. Review of Systems Constitutional: Denies anorexia Eyes: Denies blurry vision Ears, Nose, Mouth, and Throat: Denies abnormal hearing, Denies sore throat Cardiovascular: Reports irregular heart rhythm, Denies chest pain, Denies chest pain at rest, Denies foot swelling, Denies shortness of breath Gastrointestinal: Denies abdominal pain, Denies loose stools Neurologic: Denies abnormal movements, Denies convulsions Endocrine: Denies cold intolerance, Denies heat intolerance PMFSH - History History Provided By: Patient - Medical History Medical History: Medical History (Last Updated 05/19/18 @ 18:27 by CARLOTA Gonzalez) Acute renal failure on dialysis Afib CHF (congestive heart failure) Fistula Hypertension Kidney transplant complication - Surgical History Surgical History: Surgical History (Last Updated 05/19/18 @ 18:27 by CARLOTA Gonzalez) Kidney transplant recipient - Family History Family History: Family History (Last Updated 05/19/18 @ 18:28 by CARLOTA Gonzalez) Mother Stroke Heart attack ESRD on dialysis - Tobacco History Second Hand Smoke Exposure: No Tobacco Use In Past 30 Days: No Smoking Status: Never smoker - Alcohol History How Often Do You Have a Drink Containing Alcohol: Never - Substance Use History Substance History: No History of Abuse - Travel History Recent Travel in the [place] Within the Last 8 Weeks: No Recent Travel Out of the Country Within the Last 8 Weeks: No - Immunization History Tetanus Immunization: Unsure Hx Influenza Vaccine This Season: No Medications and Allergies Active Medications: Active Medications Acetaminophen (Tylenol) 650 mg PO Q4H PRN PRN Reason: Temp > 100.4 Acetaminophen (Tylenol) 650 mg PO UNSCH X1 PRN PRN Reason: SEE LABEL COMMENTS Al Hydroxide/Mg Hydroxide (Milk Of Magnesia Liq) 30 ml PO Q12H PRN PRN Reason: Mild Constipation Bisacodyl (Dulcolax Supp) 10 mg RECTAL DAILY PRN PRN Reason: SEVERE CONSITIPATION Calcium Acetate (Phoslo) 667 mg PO TID [facility] Last Admin: 05/20/18 09:20 Dose: 667 mg Cinacalcet (Sensipar) 30 mg PO DAILY [facility] Last Admin: 05/20/18 09:18 Dose: 30 mg Clonidine HCl (Clonidine (Nicu) 20 Mcg/Ml Liq) 100 mcg PO PRN [facility] Clonidine HCl (Catapres) 0.1 mg PO UNSCH X1 PRN PRN Reason: SEE LABEL COMMENTS Diltiazem HCl (Cardizem Cd 24hr) 180 mg PO DAILY [facility] Last Admin: 05/20/18 09:19 Dose: 180 mg Diphenhydramine HCl (Benadryl) 25 mg PO UNSCH PRN PRN Reason: SEE LABEL COMMENTS Epoetin Cruz (Epogen Inj) 10,000 unit IV.PUSH UNSCH PRN PRN Reason: SEE LABEL COMMENTS Gelatin (Gelfoam 12 Mm/7 Mm Topical) 1 foam TOPICAL UNSCH PRN PRN Reason: help stop bleeding from site Gentamicin Sulfate (Gentamicin Inj) 20 mg OTHER WITH DIALYSIS PRN PRN Reason: Dwell Gentamycin Lock Heparin Sodium (Porcine) (Heparin Inj) 8,000 units OTHER WITH DIALYSIS PRN PRN Reason: for machine prime Heparin Sodium (Porcine) (Heparin Inj) 0 units OTHER WITH DIALYSIS PRN PRN Reason: Dwell Heparin to Fill Catheter Albumin Human (Flexbumin 25% Inj) 100 mls @ 60 mls/hr IV.SIG WITH DIALYSIS PRN PRN Reason: hypotension / volume replace Sodium Chloride (Ns Inj) 1,000 mls @ 0 mls/hr OTHER .Q0M PRN PRN Reason: for prime and rinse back Sodium Chloride (Ns Inj) 1,000 mls @ 200 mls/hr OTHER .Q5H PRN PRN Reason: for dialyzer flush PRN Sodium Chloride (Ns Inj) 1,000 mls @ 0 mls/hr IV.CONT .Q0M PRN PRN Reason: hypotension / volume replace Lactulose (Lactulose Liq) 30 ml PO DAILY PRN PRN Reason: SEVERE CONSITIPATION Lidocaine HCl (L/M/X 4% Cream) 1 applicatio TOPICAL PRN PRN PRN Reason: PAIN SCALE 1 TO 10 Lisinopril (Prinivil) 20 mg PO DAILY [facility] Last Admin: 05/20/18 09:20 Dose: 20 mg Mannitol (Mannitol Inj) 12.5 gm IV.PUSH UNSCH PRN PRN Reason: hypotension / volume replace Metoprolol Tartrate (Lopressor) 100 mg PO BID [facility] Last Admin: 05/20/18 09:19 Dose: 100 mg Minoxidil (Loniten) 10 mg PO BID [facility] Last Admin: 05/20/18 09:20 Dose: 10 mg Nitroglycerin (Nitrostat Sl) 0.4 mg SL Q5M PRN PRN Reason: CHEST PAIN Ondansetron HCl (Zofran Inj) 4 mg IV.PUSH Q6H PRN PRN Reason: NAUSEA OR VOMITING Ondansetron HCl (Zofran Inj) 4 mg IV.PUSH UNSCH X1 PRN PRN Reason: WITH DIALYSIS Sennosides (Senokot) 17.2 mg PO Q12H PRN PRN Reason: Moderate Constipation Sevelamer Carbonate (Renvela) 800 mg PO QID [facility] Last Admin: 05/20/18 09:20 Dose: 800 mg Sodium Chloride (Ns Flush) 2 ml IV.FLUSH UNSCH PRN PRN Reason: FLUSH AFTER USING IV ACCESS Last Admin: 05/20/18 09:24 Dose: 2 ml Sodium Chloride (Ns Flush) 5 ml IV.FLUSH UNSCH PRN PRN Reason: flush each lumen during HD Vitamin B Complex/Vit C/Folic Acid (Nephrocaps) 1 tab PO DAILY [facility] Last Admin: 05/20/18 09:19 Dose: 1 tab Warfarin Sodium (Coumadin) 10 mg PO DAILY@1600 [facility] Allergies Allergy/AdvReac Type Severity Reaction Status Date / Time adhesive Allergy Severe BLISTERS Verified 05/19/18 20:06 chlorpheniramine Allergy Severe Hives Verified 05/19/18 20:06 Home Medications Medication Instructions Recorded Confirmed Type B complex-vitamin C-folic acid 1 tab PO DAILY 05/19/18 05/19/18 History [Dialyvite] calcium acetate 0 mg DIRECTED 05/19/18 05/19/18 History cinacalcet [Sensipar] 0 mg PO DAILY 05/19/18 05/19/18 History clonidine HCl 0.1 mg PO PRN 05/19/18 05/19/18 History diltiazem HCl 180 mg PO DAILY 05/19/18 05/19/18 History furosemide 40 mg PO DAILY PRN 05/19/18 05/19/18 History lisinopril 20 mg PO DAILY 05/19/18 05/19/18 History metoprolol tartrate 100 mg PO BID 05/19/18 05/19/18 History minoxidil 0 mg PO BID 05/19/18 05/19/18 History sevelamer carbonate [Renvela] 800 mg PO QID 05/19/18 05/19/18 History warfarin 10 mg PO DAILY 05/19/18 05/19/18 History Exam Vital signs: Vital Signs 05/19/18 12:23 05/19/18 12:26 05/19/18 12:46 Temperature 98.2 F 98 F Pulse Rate 156 H 149 H 97 H Respiratory Rate 18 20 18 Blood Pressure 116/73 157/96 H Pulse Oximetry 97 91 L 100 05/19/18 14:32 05/19/18 15:32 05/19/18 18:00 Temperature 99.1 F Pulse Rate 94 H 91 H 81 Respiratory Rate 18 18 20 Blood Pressure 156/99 H 160/98 H 196/108 H Pulse Oximetry 100 98 96 05/19/18 20:00 05/20/18 00:00 05/20/18 04:00 Temperature 97.5 F L 98.4 F 97.3 F L Pulse Rate 90 69 69 Respiratory Rate 18 18 18 Blood Pressure 196/119 H 158/98 H 168/92 H Pulse Oximetry 96 96 95 05/20/18 08:00 Temperature 98.1 F Pulse Rate 73 Respiratory Rate 18 Blood Pressure 170/113 H Pulse Oximetry 97 Intake & Output 05/19/18 05/20/18 05/20/18 18:59 06:59 18:59 Weight 59 kg 60.7 kg Other: # Voids 2 Weight On Admission 59 kg - Constitutional no acute distress - Routine HEENT Exam Head: Present: normocephalic, atraumatic Eye: Present: EOMI, PERRL ENT: Present: mucous membranes moist - Routine Neck Exam Present: supple, full ROM. Absent: JVD, carotid bruit - Routine Chest/Breast/Axilla Exam Chest wall: Absent: tenderness - Routine Respiratory Exam Present: crackles. Absent: accessory muscle use - Routine Cardiovascular Exam Present: RRR, S1, S2, murmur Comments: continuous hum from AVF heard over right sternal border - Routine Abdominal Exam Present: soft, normoactive bowel sounds - Routine Extremities Exam Present: full ROM. Absent: edema - Routine Skin Exam Present: intact - Routine Neurological Exam Present: alert, oriented X3, normal speech. Absent: motor deficit, facial asymmetry Results - Lab Results 05/19/18 19:14 05/20/18 00:27 Most recent lab results Calcium 8.3 mg/dL (8.5-10.1) L 05/20/18 00:27 Magnesium 2.5 mg/dL (1.5-2.5) 05/20/18 00:27 Assessment and Plan - Assessment (1) ESRD (end stage renal disease) on dialysis Code(s): N18.6 - End stage renal disease; Z99.2 - Dependence on renal dialysis Status: Acute Plan: Usually dialyzes MWF. Dialysis has been ordered for today. Emla cream for topical application over AVF. Avoid Gadolinium. Monitor fluid and electrolytes. (2) Atrial fibrillation Code(s): I48.91 - Unspecified atrial fibrillation Status: Acute Plan: Cardiology evaluation. Has history of atrial fibrillation. She is scheduled for cardiac cath tomorrow. (3) Hypertension Code(s): I10 - Essential (primary) hypertension Status: Acute Plan: Her home medications have been restarted. Monitor after dialysis and ultrafiltration. (4) Anemia Code(s): D64.9 - Anemia, unspecified Status: Acute Plan: Epogen with dialysis. (5) Metabolic bone disease Code(s): E88.9 - Metabolic disorder, unspecified; M90.80 - Osteopathy in diseases classified elsewhere, unspecified site Status: Acute Plan: Continue Sevelamer with meals. Continue Sensipar. - Attending Attestation Thanks for consult.
--- NOTE | 2018-05-20 18:44 | ECG ---
Date Performed: 05/19/2018 Time Performed: 12:33:03 PTAGE: 62 years EKG: SUPRAVENTRICULAR TACHYCARDIA SEPTAL MYOCARDIAL INFARCTION ABNORMAL ECG PREVIOUS TRACING : 06/12/2016 08.12 DOCTOR: Gabe oMntenegro Interpretating Date/Time 05/20/2018 18:37:48
--- NOTE | 2018-05-20 18:44 | ECG ---
Date Performed: 05/19/2018 Time Performed: 12:46:37 PTAGE: 62 years EKG: Sinus rhythm WITH OCCASIONAL SUPRAVENTRICULAR PREMATURE COMPLEXES POSSIBLE LEFT ATRIAL ENLARGEMENT BORDERLINE ECG PREVIOUS TRACING : 05/19/2018 12.33 DOCTOR: Gabe Montenegro Interpretating Date/Time 05/20/2018 18:37:35
[2018-05-21 08:08] LABS: INR 1.1 Ratio; Prothrombin Time 10.9 sec (9.8-11.6)
[2018-05-21] MEDS: Lisinopril 20 MG Tablet PO SCH (08:41)
[2018-05-21] MEDS: Vitamin B Complex/Vit C/Folic Tablet PO SCH (08:41)
[2018-05-21] MEDS: Metoprolol Tartrate 100 MG Tablet PO SCH (08:41)
[2018-05-21] MEDS: dilTIAZem CD 180 MG Capsule PO SCH (08:42)
[2018-05-21] MEDS: Minoxidil 10 MG Tablet PO SCH (08:42)
[2018-05-21] MEDS: Calcium Acetate 667 MG Capsule PO SCH ×3 (08:46→18:23)
--- NOTE | 2018-05-21 10:03 | P.PNNP ---
Subjective Interval history: Underwent dialysis yesterday. To have cardiac catheterization today. Currently stable, denies palpitations. Physical Exam Vital signs: Vital Signs 05/20/18 12:00 05/20/18 15:53 05/20/18 20:00 Temperature 98 F 99.0 F Pulse Rate 65 63 73 Respiratory Rate 18 18 Blood Pressure 162/83 H 153/61 H Pulse Oximetry 99 94 L 05/21/18 00:00 05/21/18 04:00 05/21/18 08:00 Temperature 97.8 F 98.8 F Pulse Rate 64 68 66 Respiratory Rate 18 18 Blood Pressure 142/92 H 168/94 H Pulse Oximetry 98 95 Intake & Output 05/20/18 05/21/18 05/21/18 18:59 06:59 18:59 Output Total 3500 / 3500 Balance -3500 / -3500 - Weight 59.4 kg Output: Urine Hemodialysis Amount 3500 / 3500 - Constitutional no acute distress - Routine HEENT Exam Head: Present: normocephalic, atraumatic Eye: Present: EOMI, PERRL ENT: Present: mucous membranes moist - Routine Neck Exam Absent: JVD, lymphadenopathy, thyromegaly - Routine Respiratory Exam Present: CTA bilaterally - Routine Cardiovascular Exam Present: RRR, S1, S2, murmur - Routine Abdominal Exam Present: soft, normoactive bowel sounds - Routine Extremities Exam Absent: edema - Routine Skin Exam Present: intact - Routine Neurological Exam Present: alert, oriented X3 Assessment and Plan - Assessment (1) ESRD (end stage renal disease) on dialysis Code(s): N18.6 - End stage renal disease; Z99.2 - Dependence on renal dialysis Status: Acute Plan: Usually dialyzes MWF. Dialysis will be continued per her schedule. . Emla cream for topical application over AVF. Avoid Gadolinium. Monitor fluid and electrolytes. (2) Atrial fibrillation Code(s): I48.91 - Unspecified atrial fibrillation Status: Acute Plan: Cardiology evaluation. Has history of atrial fibrillation. She is scheduled for cardiac cath today. (3) Hypertension Code(s): I10 - Essential (primary) hypertension Status: Acute Plan: Her home medications have been restarted. Monitor after dialysis and ultrafiltration. (4) Anemia Code(s): D64.9 - Anemia, unspecified Status: Acute Plan: Epogen with dialysis. (5) Metabolic bone disease Code(s): E88.9 - Metabolic disorder, unspecified; M90.80 - Osteopathy in diseases classified elsewhere, unspecified site Status: Acute Plan: Continue Sevelamer with meals. Continue Sensipar. - Attending Attestation patient can be discharged from renal standpoint if cleared by cardiology.
[2018-05-21 12:23] VITALS: TEMP 97.6
[2018-05-21] MEDS ORDERED: fentaNYL Citrate Inj 100 MCG/2 ML Ampul ONE (12:44)
[2018-05-21] MEDS ORDERED: Heparin/NS PF Inj 1,000 ML ONE (12:45)
[2018-05-21] MEDS ORDERED: fentaNYL Citrate Inj 100 MCG/2 ML Ampul IV.PUSH ONE (13:11)
--- NOTE | 2018-05-21 14:15 | CATHPROC ---
[employer] HIS Report Study Information Study Number Admission Scheduled Start Study Start [id number] May 19 2018 5:25PM 05/21/2018 May 21 2018 12:27PM [place] Service Cardiac Catheterization Admit Source Facility Department Other [facility] - Admin Dir Physician and Clinical Staff Initial Raymond Hernandez Subcontracts Manager Elida Enciso,KAI Subcontracts Manager Doreen Polk RN Recorder Wen Serna,RT(R) (BS) Scrub Rachelle Urban,SUPERVISOR CALIBRATION TECH2 X-Ray Rolando AguilarRT(R) Procedures Performed Procedure Location (Site) Vessel Name Coronary Angiograms LCA Left Coronary Coronary Angiograms RCA Right Coronary Wire insertion Fem Art (right) Femoral Art Equipment Time Cocoa Bean Roaster Helper Description Size Mfg Part Number Used/Scraped CATHETER, FR5 SWAN WARD 12:52 PETER HERRING FR 5 [id number] *[id number] Used MONITOR TRANSDUCER, TRUWAVE [id number] 12:30 PETER HERRING * Used W/STOCKCOCK *[id number] *[id number] [id number] *[id number] [id number] *[id number] [id number] *[id number] 12:30 [employer] BLANKET,WARM AIR CCL * Used *[id number] 12:30 [employer] PACK, CCL CUSTOM * Used *[id number] 12:30 [employer] PACER PEN, SKIN DUAL W/ RULER * Used *[id number] 13:40 [employer] JL 4.0 DXTERITY CATHETER FR 5 Used *[id number] 12:52 [employer] MEDICAL SHEATH, FR5.5 PRELUDE 11CM FR 5.5 Used [id number] 12:30 [employer] MEDICAL WIRE, 3MMJ .035 180CM 180CM Used *[id number] 12:30 NAMIC MANIFOLD, 2 PORT * Used *[id number] 12:30 NAM[employer] MANIFOLD, 4 PORT * Used *[id number] 12:30 [employer] OMNIPAQUE, 350 MG, 150ML 150ML [id number] Used [id number] 12:30 TERUMO MEDICAL SHEATH, FR5 TERUMO (10CM) FR 5 Used *[id number] Equipment Model, Serial, Lot Number and Expiration Data Description Model Number Serial Number Lot Number Expiration Date JL 4.0 DXTERITY CATHETER [id number] 07-31-2020 History: Current Medications Medication Dosage/Unit Route Frequency Last Date/Time Taken LISINOPRIL Beta Reese Coumadin History: Allergies Allergy Reaction adhesive BLISTERS chlorpheniramine Hives History: Risk Factors Family History of Hypertension Dyslipidemia Previous [place] Previous Heart Failure Premature CAD Yes No Yes No Yes Prior Valve Prior PCI Prior CABG Surgery No No No Cerebrovascular Peripheral Artery Chronic Lung On Dialysis Diabetes Disease Disease Disease Yes No No No No History: Stress Tests Stress or Imaging Studies Performed No History: Other Current Smoker No Labs Hgb (g/dl) Hct (%) WBC (l/cumm) Platelets (thousands) 11.60-17.00 35.00-51.00 4.00-11.00 150.00-450.00 9.1 27.3 4.5 132 Glucose (mg/dl) BUN (mg/dl) Creatinine (mg/dl) BUN:Creatinine (1:x) 74.00-106.00 7.00-18.00 0.50-1.30 10.00-20.00 91 66 11.2 5.9 Na (meq/l) K (meq/l) 136.00-145.00 3.50-5.10 143 4.4 INR (PTT:PT) 0.90-1.10 1.1 Troponin I (ng/ml) Troponin T (ng/ml) CPK-MB (ng/ML) 0.02-0.05 0.40-2.10 0.50-3.60 0.12 0.13 Not Drawn Medication Medication Total Dose (Bolus/Oral) Medication Total Dosage/Unit 1% XYLOCAINE 20 mL FENTANYL 25 mcg VERSED 0.5 mg Medications (Bolus/Oral) Medication Time Given Dosage/Unit Administered By Reason VERSED 05/21/2018 1:10:50 PM 0.5 mg Elida Enciso 0.5 mg VERSED given in lab by Elida Enciso, KAI via Peripheral IV. FENTANYL 05/21/2018 1:11:55 PM 25 mcg Elida Enciso 25 mcg FENTANYL given in lab by Elida Enciso, KAI via Peripheral IV. 1% XYLOCAINE 05/21/2018 1:13:58 PM 20 mL Raymond Chavez 20 mL 1% XYLOCAINE given in lab by Raymond Chavez in Right Groin via Subcutaneous. Medication (Drip) Medication Time Given Dosage/Unit Concentration/Unit Diluent (ml) Solution IV Solutions 05/21/2018 12:38:11 PM 0 mL (IV) 1000 NaCl .9 IV Solutions given in lab by Elida Enciso, KAI via Peripheral IV. Pump/Drip Flow = 20 ml/hr using N aCl .9. Initial Case Assessment Cardiovascular HR Rhythm NIBP Chest Pain 62 reg 157/99 0 Edema Present Skin color Skin None Normal Warm Dry Circulatory - Right Pulses Dorsalis Pedis Femoral 3 3 Scale (0,1,2,3,4,d) Circulatory - Left Pulses Dorsalis Pedis Femoral 3 3 Scale (0,1,2,3,4,d) Circulatory - Lower Extremities Color Lower Right Color Lower Left Normal Normal Neurological State Oriented to time-place- Alert Moves all extremities person Respiration - General Respiration Rate SpO2 (%) O2 (lpm) (B/min) 13 100 0 Chronological Log Time Study Chronological Log 12:37:52 Patient arrived via Bed. 12:37:54 Patient Name, D.O.B, / Armband Verified By R.N. 12:37:55 Consent signed by the physician and the patient and verified by the Admin Dir staff. 12:37:56 Pre-op and post- op instructions given; patient acknowledges understanding of instructions. 12:37:57 Verbal Stimulation=2 Physical Stimulation=2 Airway=2 Respiration=2 TOTAL=8. (0=absent, 1=li mited, 2=present) 12:37:58 Presedation assessment performed by Admin Dir RN. 12:38:02 Patient has been NPO for More than 6Hrs. 12:38:03 Skin Breakdown- none per patient. 12:38:05 Patient Warmer Placed on the Table. 12:38:06 Ed Prominences Protected 12:38:09 A # 20 IV was noted in the Antecubital (left). Grade = 0 12:38:11 IV Solutions given in lab by Elida Enciso, KAI via Peripheral IV. Pump/Drip Flow = 20 ml/ hr using NaCl .9. 12:38:12 History and physical on the chart or being dictated. Assessment: Initial Case, HR=62 BPM, Rhythm=reg, LOZA=223/99 mmhg, Chest Pain=0, Edema=None, Co manan=Normal, Skin = Warm, Dry Right Pulses: Yvan Ped=3, Femoral=3 Left Pulses: Yvan Ped=3, Femoral=3 12:41:50 Lower Right Extremities: Color=Normal Lower Left Extremities: Color=Normal Neurological: State=Alert, Ox3, LAGUERRE Respiration: Resp=13 B/min, AbM4=386 %, O2=0 lpm 12:43:56 MD arrived. 12:45:17 HR=63 bpm, PMDT=808/99 mmhg, WzA1=185.0 %, Resp=1 B/min, Pain=0, Chary=10, Bird=2 Vitals capture started with the following parameters, Patient=Adult, Interval=5 min, Initial Pr vmrsgs=165 mmHg, 12:53:11 Deflation Rate=5 mmHg, Cuff placed on Left Arm 12:53:23 Bilateral groins prepped with 2% chlorhexidine, and draped after a 3 minute waiting time. 12:53:49 HR=62 bpm, EOOV=712/96 mmhg, LwG2=980.0 %, Resp=12 B/min, Pain=0, Chary=10, Bird=2 12:58:27 Pressure channel 2 zeroed. 12:58:50 HR=67 bpm, MGNA=830/100 mmhg, SpO2=98.0 %, Resp=11 B/min, Pain=0, Chary=10, Bird=2 13:01:39 MD paged 13:02:40 MD responded 13:03:49 HR=66 bpm, SFIB=207/91 mmhg, SpO2=99.0 %, Resp=27 B/min, Pain=0, Chary=10, Bird=2 13:08:48 HR=62 bpm, TZFJ=296/90 mmhg, SpO2=99.0 %, Resp=17 B/min, Pain=0, Chary=10, Bird=2 Time Out. Correct patient, correct procedure, correct physician, labs, allergies, and equipment verified with laboratory cureman 13:09:48 team present. Fire risk assesment completed (see hard stop sheet for coding). Time Out Conc urred by MD and individual staff in procedure. 13:10:20 Case Start 13:10:36 Reference ECG taken 13:10:50 0.5 mg VERSED given in lab by Elida Enciso, RN via Peripheral IV. 13:11:55 25 mcg FENTANYL given in lab by Elida Enciso, KAI via Peripheral IV. 13:13:47 HR=63 bpm, NCZJ=084/83 mmhg, SpO2=98.0 %, Resp=16 B/min, Pain=0, Chary=10, Bird=2 13:13:58 20 mL 1% XYLOCAINE given in lab by Raymond Chavez in Right Groin via Subcutaneous. 13:17:48 Access site was Right Femoral Artery. 13:17:53 A SHEATH, FR5 TERUMO (10CM) FR 5 was advanced into the Fem Art (right) using the Percutaneo us technique. 13:18:44 HR=62 bpm, ASKO=148/82 mmhg, SpO2=94.0 %, Resp=17 B/min, Pain=0, Chary=10, Bird=2 13:19:37 Access site was Right Femoral Vein. 13:19:43 A SHEATH, FR5.5 PRELUDE 11CM FR 5.5 was advanced into the Fem Art (right) using the Percuta neous technique. 13:21:12 A CATHETER, FR5 SWAN WARD MONITOR FR 5 was inserted via Fem Vein (right) 13:23:45 HR=69 bpm, LETW=245/86 mmhg, SpO2=94.0 %, Resp=18 B/min, Pain=0, Chary=10, Bird=2 Recorded Pressure: PCW, HR=63, Condition=Condition 1 13:27:37 (Pulmonary Capillary Wedge) PCW Recorded Pressure: MPA, HR=63, Condition=Condition 1 13:28:00 (Main Pulmonary Artery) MPA 13:28:48 HR=61 bpm, INEB=854/80 mmhg, SpO2=95.0 %, Resp=20 B/min, Pain=0, Chary=10, Bird=2 13:28:48 Saturation: Site=PA (Pulmonary Artery) , O2=64.1 %, Hgb=9.1 gm/dl, Condition=Condition 1. U sed in calculation. Recorded Pressure: RV, HR=63, Condition=Condition 1 13:30:04 (Right Ventricle) RV Recorded Pressure: RA, HR=61, Condition=Condition 1 13:31:15 (Right Atrium) RA 12/5 13:31:[address] [place] [address] Catheter Removed 13:33:31 An injection in the Fem Art (right) was made through the SHEATH, FR5 TERUMO (10CM) FR 5. A JL 3.5 INFINITI CATHETER FR 5 was advanced over a wire. OMNIPAQUE, 350 MG, 150ML 150ML was us ed for 13:34:02 injections. 13:34:26 HR=62 bpm, CFLH=721/87 mmhg, SpO2=96.0 %, Resp=14 B/min, Pain=0, Chary=10, Bird=2 Recorded Pressure: LV, HR=60, Condition=Condition 1 13:35:04 (Left Ventricle) LV 125/3/12 Recorded Pressure: LV, Ao, HR=60, Condition=Condition 1 13:35:14 (Left Ventricle) LV 136/4/12, (Aorta) Ao 147/71/102 13:35:59 A WIRE, 3MMJ .035 180CM 180CM was inserted via Fem Art (right). Recorded Pressure: Ao, HR=61, Condition=Condition 1 13:37:37 (Aorta) Ao 144/80/106 13:38:46 HR=61 bpm, QZLR=460/83 mmhg, SpO2=93.0 %, Resp=22 B/min, Pain=0, Chary=10, Bird=2 After removing the current catheter a JL 4.0 DXTERITY CATHETER FR 5 was advanced over a WIRE, 3 MMJ .035 180CM 13:39:45 180CM. 13:40:56 Saturation: Site=Ao (Aorta) , O2=83.9 %, Hgb=9.1 gm/dl, Condition=Condition 1. Not used in calculation. 13:43:24 The LCA was injected and visualized at various angles. OMNIPAQUE, 350 MG, 150ML 150ML used . 13:43:49 HR=61 bpm, KXSN=412/90 mmhg, SpO2=97.0 %, Resp=21 B/min, Pain=0, Chary=10, Bird=2 13:46:03 Saturation: Site=Ao (Aorta) , O2=83.3 %, Hgb=9.1 gm/dl, Condition=Condition 1. Not used in calculation. After removing the current catheter a JR 4.0 INFINITI CATHETER FR 5 was advanced over a WIRE, 3 MMJ .035 180CM 13:47:05 180CM. 13:48:52 HR=60 bpm, XLZF=291/81 mmhg, SpO2=97.0 %, Resp=16 B/min After removing the current catheter a 3DRC INFINITI CATHETER FR 5 was advanced over a WIRE, 3MM J .035 180CM 13:53:02 180CM. 13:53:51 HR=59 bpm, ACLV=565/82 mmhg, SpO2=96.0 %, Resp=18 B/min, Pain=0, Chary=10, Bird=2 13:58:51 HR=59 bpm, ZBMQ=160/91 mmhg, SpO2=97.0 %, Resp=18 B/min, Pain=0, Chary=10, Bird=2 13:58:56 Catheter was removed A JR 5.0 INFINITI CATHETER FR 5 was advanced over a wire. OMNIPAQUE, 350 MG, 150ML 150ML was us ed for 14:00:27 injections. 14:02:10 Saturation: Site=Ao (Aorta) , O2=86.3 %, Hgb=9.1 gm/dl, Condition=Condition 1. Used in calc ulation. 14:03:52 HR=63 bpm, OUVJ=137/93 mmhg, SpO2=98.0 %, Resp=24 B/min, Pain=0, Chary=10, Bird=2 14:04:39 The RCA was injected and visualized at various angles. OMNIPAQUE, 350 MG, 150ML 150ML used . 14:05:13 Catheter was removed 14:06:38 Case End (Physician broke scrub) 14:08:51 HR=66 bpm, YFFX=111/94 mmhg, SpO2=97.0 %, Resp=17 B/min, Pain=0, Chary=10, Bird=2 14:11:18 Vitals capture stopped. 14:11:34 Catheter(s) removed without difficulty 14:11:40 Sterile dressing applied to site 14:11:41 No case complications noted. 14:11:43 Bedside Report will be given. 14:11:45 A Left and Right Heart Cath was performed. End Study - Contrast Media Used In Study Contrast Total Opened (mL) Total Used (mL) Total Wasted (mL) Omnipaque 75 75 0 End Study - Maximum Contrast Load Max Contrast Load (mL) 26.5 End Study - Radiation Exposure Fluoro Time (minutes) 22.2 End Study - Patient Disposition Complications Transferred To Interventional Outcome No Admin Dir Holding No attempt made
[2018-05-21] MEDS ORDERED: hydrALAZINE 50 MG Tablet PO SCH ×2 (14:46→18:00)
--- NOTE | 2018-05-21 15:41 | P.DS ---
Date of admission: 05/19/18 17:25 Primary care physician: Marcus Campos DO Brief History from admission: This patient is a 60-year-old female known to our office who had a past medical history ESRD with kidney transplant, on hemodialysis every Sunday and Sunday, congestive heart failure with EF of 60-65% on 2D echo in August 2015, atrial fibrillation, and hypertension who presented to the emergency room with a complaint of racing heart, atrial fibrillation. She voices she was sleeping having a bad dream and awoke with her fast heart rate, that did not subside. She denies any Chest pain or sob. She is scheduled for Heart Cath on Sunday05/21/18 here at [facility] with Dr Chavez, as part of clearance for upcoming kidney transplant DS: Diagnosis - Discharge Diagnosis (1) SVT (supraventricular tachycardia) Status: Acute (2) Atrial fibrillation Status: Acute (3) End stage chronic kidney disease Status: Acute (4) Congestive heart failure (CHF) Status: Acute (5) Hypertension Status: Acute DS: Summary Hospital Course: This patient is a 60-year-old female who had a past medical history ESRD with kidney transplant, on hemodialysis every Sunday and Sunday, congestive heart failure with EF of 60-65% on 2D echo in August 2015, atrial fibrillation, and hypertension who presented to the emergency room with a complaint of racing heart, atrial fibrillation. Patient also is a dialysis patient, had a kidney transplant in 2009 that was implanted on the right side. At this time the court interpreter is working her out for another kidney transplant and was scheduled for an elective heart catheterization on 05/21, as part of the evaluation and requirement for the transplant. cardiac cath completed, she is cleared by cardiology for DC to home. - Time Spent with Patient Total time spent providing and/or coordinating discharge services: 30 Less than 30 minutes - Quality: AMI Clinical Trial Participant: No - Quality: VTE Deep Vein Thrombosis/Pulmonary Embolism Present on Admission: No Exam Vital signs: Vital Signs 05/20/18 15:53 05/20/18 20:00 05/21/18 00:00 Temperature 99.0 F Pulse Rate 63 73 64 Respiratory Rate 18 Blood Pressure 153/61 H Pulse Oximetry 94 L 05/21/18 04:00 05/21/18 07:49 05/21/18 08:00 Temperature 97.8 F 98.8 F Pulse Rate 68 68 66 Respiratory Rate 18 18 Blood Pressure 142/92 H 168/94 H Pulse Oximetry 98 95 05/21/18 11:43 05/21/18 12:00 05/21/18 14:38 Temperature 97.6 F Pulse Rate 65 68 Respiratory Rate 20 Blood Pressure 158/98 H Pulse Oximetry 98 94 L Intake & Output 05/20/18 05/21/18 05/21/18 18:59 06:59 18:59 Output Total 3500 / 3500 Balance -3500 / -3500 - - Weight 59.4 kg Output: Urine Hemodialysis Amount 3500 / 3500 - Constitutional no acute distress - Routine HEENT Exam Head: Present: normocephalic Eye: Present: PERRL ENT: Present: mucous membranes moist - Routine Neck Exam Present: supple - Routine Respiratory Exam Present: CTA bilaterally - Routine Cardiovascular Exam Present: S1, S2 - Routine Abdominal Exam Present: soft, normoactive bowel sounds - Routine Extremities Exam Present: pulses intact - Routine Skin Exam Present: dry, warm - Routine Neurological Exam Present: alert, oriented X3 Results Procedures completed during hospitalization: Cardiac cancerization 05/21/18 Labs on day of discharge: Labs from last 24 hours 05/21/18 07:19 PT 10.9 INR 1.1 - Impressions ITS Impressions Chest X-Ray 05/19/18 13:11 CONCLUSION: Clear lungs. Discharge Plan - Discharge Disposition Patient Disposition: 01 Discharge Home - Discharge Condition Condition: Fair - Discharge Order Discharge Orders: Discharge Order (Routine); Ordered 05/21/18 Ordered By: Vira Hummel - Discharge Details Anticipated Discharge Date: 05/21/18 Discharge Comment: Patient presented with chest pain, borderline troponin, placed on observation under Dr. Hogan. - Physicians Team Primary Care Provider: Marcus Campos Attending Provider: Marcus Campos Other Providers: Junior Garcia MD ; Enrico Chavez
[2018-05-21] MEDS ORDERED: Iohexol 350 MG/ML 100 ML Vial (for Cath Lab) IVCONTRAST ONE (16:00)
[2018-05-21 18:22] VITALS: BP 138/82; PULSE 66; RESP 18; O2SAT 98
--- NOTE | 2018-05-22 20:00 | MA ---
cc: Raymond Chavez DO DATE: 05/21/2018 ATTENDING: Raymond Chavez DO PROCEDURES PERFORMED: 1. Right heart catheterization. 2. Left heart catheterization. 3. Selective right and left coronary angiography. 4. Right femoral arteriography. PREPROCEDURE DIAGNOSES: 1. End-stage renal disease, currently on hemodialysis, status post failed renal transplantation. 2. Moderate pulmonary hypertension with estimated PAP 51.5 mmHg by transthoracic echocardiogram on 03/21/2018. ANESTHESIA: 1. Fentanyl and Versed were used for conscious sedation. 2. Lidocaine was useful for local anesthetic. COMPLICATIONS: None. ESTIMATED BLOOD LOSS: 10 mL INFORMED CONSENT: Prior to the procedure, the patient was informed of the risks, alternatives and benefits of the procedure including, but not limited to bleeding, vascular complications, stroke, myocardial infarction, arrhythmias, pneumothorax, infarction, arrhythmias and . Expressing an understanding of these risks, the patient agreed to proceed with the procedure. DESCRIPTION OF PROCEDURE: The patient was brought to the [facility] cardiac catheterization lab number 5 in a postabsorptive state. The patient was prepped and draped in the usual sterile fashion. A timeout was taken in order to verify the patient, procedure and preprocedure labs. The right femoral artery was identified from anatomic location and using a finder needle, the right femoral artery was cannulated using a modified Seldinger technique and a 5-Israeli [place] sheath was placed. The sheath was flushed with sterile saline and subsequently flushed between catheter exchanges. The right femoral vein was then identified by anatomic location and using a finder needle, was cannulated and a 5-Israeli sheath was placed. The sheath was flushed. Under fluoroscopic guidance, a 5-Israeli [place]-Kathryn catheter was advanced and a balloon inflated at approximately 20 cm. Full hemodynamic assessment of the RA, RV, PA and PCW positions were obtained. Pulmonary capillary PA oxygen saturation and AO oxygen saturation were obtained. The catheter was then removed. Attention was then focused on performing left heart catheterization and coronary angiography. A JL 3.5 diagnostic catheter was advanced over a J-tipped guidewire into the ascending aorta and was unsuccessful in engaging the left coronary artery. The catheter was removed over a guidewire and exchanged for a JL 4.0 diagnostic catheter, which successfully engaged the left coronary artery. Serial orthogonal angiographic images were obtained. The catheter was then removed over a guidewire. A JR 3.5 diagnostic catheter was attempted and unsuccessful in engaging the right coronary artery. The catheter was removed over a wire and a 3 DR diagnostic catheter was attempted and also unsuccessful in engaging the right coronary artery and was removed over a wire. A JR 4.0 diagnostic catheter was then able to successfully engage the right coronary artery and serial orthogonal angiographic images were obtained. During attempt to engage the right coronary artery, the JR diagnostic catheter incidentally crossed the aortic valve into the left ventricle. Hemodynamic assessment of left ventricle was obtained as well as hemodynamic assessment with manual pullback across the aortic valve to measure gradients. The catheter was then removed with completion of the case. Both the right femoral vein and arterial sheaths were pulled with manual pressure, applied until hemostasis was achieved prior to the patient leaving the cardiac catheterization laboratory in stable condition. HEMODYNAMIC FINDINGS: 1. RA: 12 mmHg, small V waves present. 2. RV: 47/1, EDP 10 mmHg. Normal ventricular waveforms with some artifact due to catheter width. 3. PA: 45/17, mean 28 mmHg. Normal appearing dicrotic notch with minimal inspiratory variation. 4. PCW: 13 mmHg, very small A and V waves. 5. PA saturation 61.4%. 6. AO saturation 86.3% (patient has known AV fistula for hemodialysis). 7. LV: 136/4. LVEDP pressure 12 mmHg. 8. AO: 144/80, mean 106 mmHg. 9. No significant gradient upon manual pullback across the aortic valve. ANGIOGRAPHIC FINDINGS: 1. Right femoral arteriography: The RFA in the imaged portion is angiographically free of disease. 2. Left main coronary artery: Left main coronary artery arises from the aorta in its usual position. It is a large size, moderate length vessel and angiographically free of disease. 3. LAD: The LAD is a large caliber vessel and gives rise to a few small diagonal branches and a moderate size diagonal branch proximally before continuing distally to wrap the apex. There is an area of long length eccentric approximate 20% to 30% stenosis in a proximal segment of the LAD with mild luminal irregularity in the mid portion. There is mild luminal irregularity in the midportion of the moderate caliber second diagonal vessel. 4. Left circumflex: Left circumflex is a moderate caliber codominant vessel and gives rise to 2 moderate size obtuse marginal branches before continuing distally to provide left-sided PDA. There is mild diffuse luminal irregularity of the left circumflex. The obtuse marginal branches are angiographically free of disease. 5. Right coronary artery: The right coronary artery arises from the aorta in an anterior position off the right coronary cusp and is a moderate caliber codominant vessel. There is a long eccentric approximate 30%-40% stenosis in the mid RCA with MARION 3 flow distally to the right PDA, which is angiographically free of disease. IMPRESSION: 1. Nonobstructive coronary artery disease involvin%-30% eccentric stenosis in the proximal left anterior descending, and 30%-40% long length eccentric stenosis in the mid right coronary artery with MARION 3 flow distally. 2. Mildly elevated right-sided filling pressures with mild pulmonary hypertension and mean pulmonary arterial pressure 28 mmHg. RECOMMENDATIONS: The patient will be discharged home today in stable condition. Her diagnostic evaluation findings will be referred to her renal transplant team. She did undergo hemodialysis the day prior to the procedure and hemodynamic findings should be taken in context of this. At this juncture, I do not see contraindication to moving forward with renal transplantation from a cardiovascular or hemodynamic perspective. Raymond Chavez DO ALBERT/ct , 07:09 PM , 07:26 PM
== END 2018-05-21 19:49 | disposition home or self-care (01) ==
LOC: NEPC 12:18 → N04 17:25 → NEPC 17:35
PROVIDERS: ADMIT Family Medicine; ATTEND Family Medicine

== ENCOUNTER 2018-08-23 17:56 | Observation (INO) ==
--- NOTE | 2018-08-23 18:26 | XR ---
EXAM DATE: 08/23/2018 6:22 PM EST AGE/SEX: 62 years / Female INDICATIONS: Chest pain. CLINICAL DATA: This is the patient's initial encounter. Patient reports that signs and symptoms have been present for 1 day and indicates a pain score of 10/10. MEDICAL/SURGICAL HISTORY: . AFIB. None. COMPARISON: [facility] [place], CHEST 1V SINGLE AP, 05/19/2018. . FINDINGS: Mild interstitial prominence unchanged from previous exam. No new focal pleural or parenchymal abnorm ality. Redemonstration of calcified hilar and mediastinal nodes. The cardiomediastinal contours are u nremarkable. Osseous structures are intact. CONCLUSION: 1. No acute abnormality or significant interval change. Electronically signed by: Alexi Vásquez MD Board Certified Radiologist 08/23/2018 6:24 PM MARQUES T
[2018-08-23 18:31] LABS: Baso % (Auto) 0.6 % (0.0-2.0); Eos # (Auto) 0.5 th/mm3 (0.0-0.4); Eos % (Auto) 7.5 % (0.0-4.0); Hematocrit 36.6 % (35.0-46.0); Hemoglobin 12.1 gm/dL (11.6-15.3); Lymph # (Auto) 3.2 th/mm3 (1.0-4.8); Lymph % (Auto) 47.5 % (9.0-44.0); Mean Corpuscular HGB Conc 33.1 % (32.0-36.0); Mean Corpuscular Hemoglobin 31.8 pg (27.0-34.0); Mean Corpuscular Volume 96.1 fL (80.0-100.0); Mean Platelet Volume 7.7 fL (7.0-11.0); Mono # (Auto) 0.4 th/mm3 (0.0-0.9); Mono % (Auto) 6.3 % (0.0-8.0); Neut # (Auto) 2.5 th/mm3 (1.8-7.7); Neut % (Auto) 38.1 % (16.0-70.0); Platelet Count 234 th/mm3 (150-450); Red Cell Distribution Width 13.3 % (11.6-17.2); White Blood Count 6.7 th/mm3 (4.0-11.0)
[2018-08-23 18:59] LABS: Albumin 3.6 g/dL (3.4-5.0); Anion Gap 13 meq/L (5-15); Aspartate Aminotransferase 17 U/L (15-37); Blood Urea Nitrogen 35 mg/dL (7-18); Calcium 8.8 mg/dL (8.5-10.1); Carbon Dioxide 28.3 meq/L (21.0-32.0); Chloride 101 meq/L (98-107); Glomerular Filtration Rate 7 mL/min (>89); Glucose,Random 98 mg/dL (74-106); Sodium 142 meq/L (136-145)
[2018-08-23 19:00] LABS: Activated Partial Thrombo Time 30.8 sec (23.4-31.7); Alanine Aminotransferase 12 U/L (10-53); INR 1.5 Ratio; Prothrombin Time 15.4 sec (9.8-11.6)
[2018-08-23 19:04] LABS: Alkaline Phosphatase 80 U/L (45-117); Creatine Kinase 101 U/L (26-192); Total Protein 7.8 g/dL (6.4-8.2); Troponin I 0.05 ng/mL (0.02-0.05)
[2018-08-23 19:16] LABS: Creatine Kinase MB 2.3 ng/mL (0.5-3.6)
--- NOTE | 2018-08-23 19:36 | ED ---
HPI General Chief complaint: Arrhythmia / Palpitations Stated complaint: chest pain Time Seen by Provider: 08/23/18 18:08 Source: patient Mode of arrival: ambulatory Limitations: no limitations History of Present Illness HPI narrative: Patient is a 62-year-old female with history of end-stage renal disease, atrial fibrillation, who comes in complaining of chest pain. She says she was at the store today after dialysis when she developed sudden onset of crushing substernal chest pain. She says this happened before when her A. fib was not controlled. She does report compliance with her medications. She went to dialysis today and had a full session. She denies nausea or vomiting. She denies shortness of breath. Severity is moderate. Related Data Home Medications Medication Instructions Recorded Confirmed B complex-vitamin C-folic acid 1 tab PO DAILY 05/19/18 08/23/18 [Dialyvite] calcium acetate 1,334 mg DIRECTED 05/19/18 08/23/18 cinacalcet [Sensipar] 0 mg PO DAILY 05/19/18 08/23/18 clonidine HCl 0.1 mg PO PRN 05/19/18 08/23/18 diltiazem HCl 180 mg PO DAILY 05/19/18 08/23/18 furosemide 40 mg PO DAILY PRN 05/19/18 08/23/18 lisinopril 20 mg PO DAILY 05/19/18 08/23/18 metoprolol tartrate 100 mg PO BID 05/19/18 08/23/18 minoxidil 5 mg PO BID 05/19/18 08/23/18 sevelamer carbonate [Renvela] 2,400 mg PO QID 05/19/18 08/23/18 warfarin 10 mg PO DAILY 05/19/18 08/23/18 B complex-vitamin C-folic acid 1 tab PO DAILY 06/17/18 08/23/18 [Dialyvite] lisinopril 20 mg PO BID 06/17/18 08/23/18 hydralazine 100 mg PO TID 06/27/18 08/23/18 Allergies Allergy/AdvReac Type Severity Reaction Status Date / Time adhesive Allergy Severe BLISTERS Verified 05/19/18 20:06 chlorpheniramine Allergy Severe Hives Verified 05/19/18 20:06 Review of Systems ROS: all other systems reviewed are negative Constitutional Denies chills and Denies fever(s) ENT Denies dizziness Cardiovascular Reports chest pain and Reports palpitations Respiratory Denies cough Gastrointestinal Denies nausea and Denies vomiting Musculoskeletal Denies myalgias and Denies arthralgias Integumentary/Breasts Denies sores and Denies wounds Neurologic Denies focal weakness and Denies numbness [facility] Medical History Medical History Acute renal failure on dialysis (Acute) Afib (Acute) Anxiety (Acute) CHF (congestive heart failure) (Acute) Depression (Acute) Fistula (Acute) Herniated disc (Acute) Hypertension (Acute) Kidney transplant complication (Acute) Nodule of kidney (Acute) Transfusion history (Acute) Surgical History Surgical History History of partial hysterectomy (Acute) Kidney transplant recipient (Acute) Family History Family History Mother Stroke Heart attack ESRD on dialysis Social History Social History Substance History: No History of Abuse Second Hand Smoke Exposure: No Smoking Status: Never smoker How Often Do You Have a Drink Containing Alcohol: Never Hx Recent Travel: No Recent Travel in [facility] within the Last 8 Weeks: No Recent Out of Country Travel within the Last 8 Weeks: No Immunization History Tetanus Immunization: <5 Years Exam Narrative Exam Narrative: GENERAL: Awake and alert, in mild distress due to pain. SKIN: Focused skin assessment warm/dry. No wounds or signs of infection. HEAD: Atraumatic. Normocephalic. EYES: Pupils equal and round. No scleral icterus. No injection or drainage. ENT: No nasal bleeding or discharge. Mucous membranes pink and moist. NECK: Trachea midline. No JVD. CARDIOVASCULAR: Tachycardia. No murmur appreciated. RESPIRATORY: No accessory muscle use. Clear to auscultation. Breath sounds equal bilaterally. GASTROINTESTINAL: Abdomen soft, non-tender, nondistended. MUSCULOSKELETAL: No obvious deformities. No clubbing. No cyanosis. No edema. NEUROLOGICAL: Awake and alert. No obvious cranial nerve deficits. Motor grossly within normal limits. Normal speech. PSYCHIATRIC: Appropriate mood and affect; insight and judgment normal. Course Initial Documented Vital Signs Temperature 98.1 F 08/23/18 17:58 Pulse Rate 134 H 08/23/18 17:58 Respiratory Rate 20 08/23/18 17:58 Blood Pressure 72/48 L 08/23/18 17:58 Pulse Oximetry 96 08/23/18 17:58 Last Documented Vital Signs Temperature 98.1 F 08/23/18 17:58 Pulse Rate 90 08/23/18 19:13 Respiratory Rate 18 08/23/18 19:13 Blood Pressure 134/79 08/23/18 19:13 Pulse Oximetry 98 08/23/18 19:50 Medical Decision Making MDM Narrative Medical decision making narrative: Patient is a 8-year-old female comes in complaining of chest pain. She is found to be tachycardic on arrival. IV established, labs sent. Labs show troponin of 0.05, no acute abnormalities. She is end-stage renal, was dialyzed today. On arrival she was tachycardic to the 130s. She was given 1 dose of Cardizem with improvement of her blood pressure and her pulse rate. Based on her chest pain however, I believe she would benefit from an ACS rule out, and will be placed in the chest pain center. Medical Screen Exam Complete: Yes Emergency Medical Condition: Yes Differential Diagnosis Differential Diagnosis: A. fib with RVR versus electrolyte abnormality versus ACS Medical Records Medical records reviewed: Yes I reviewed the patient's medical records. Lab Data Lab results reviewed: Yes I reviewed the patient's lab results. Result diagrams: 08/23/18 18:15 08/23/18 18:15 Lab Results 08/23/18 08/23/18 08/23/18 Range/Units 18:15 18:15 18:15 WBC 6.7 (4.0-11.0) th/mm3 RBC 3.80 L (4.00-5.30) mil/mm3 Hgb 12.1 (11.6-15.3) gm/dL Hct 36.6 (35.0-46.0) % MCV 96.1 (80.0-100.0) fL MCH 31.8 (27.0-34.0) pg MCHC 33.1 (32.0-36.0) % RDW 13.3 (11.6-17.2) % Plt Count 234 (150-450) th/mm3 MPV 7.7 (7.0-11.0) fL Neut % (Auto) 38.1 (16.0-70.0) % Lymph % (Auto) 47.5 H (9.0-44.0) % [place] % (Auto) 6.3 (0.0-8.0) % Eos % (Auto) 7.5 H (0.0-4.0) % Baso % (Auto) 0.6 (0.0-2.0) % Neut # (Auto) 2.5 (1.8-7.7) th/mm3 Lymph # (Auto) 3.2 (1.0-4.8) th/mm3 [place] # (Auto) 0.4 (0.0-0.9) th/mm3 Eos # (Auto) 0.5 H (0.0-0.4) th/mm3 Baso # (Auto) 0.0 (0.0-0.2) th/mm3 WBC Differential . Differential Comment Auto diff final PT 15.4 H (9.8-11.6) sec INR 1.5 Ratio APTT 30.8 (23.4-31.7) sec Sodium 142 (136-145) meq/L Potassium 3.0 L (3.5-5.1) meq/L Chloride 101 (98-107) meq/L Carbon Dioxide 28.3 (21.0-32.0) meq/L Anion Gap 13 (5-15) meq/L BUN 35 H (7-18) mg/dL Creatinine 7.25 H (0.50-1.00) mg/dL Estimated GFR 7 L (>89) mL/min Random Glucose 98 (74-106) mg/dL Calcium 8.8 (8.5-10.1) mg/dL Total Bilirubin 0.4 (0.2-1.0) mg/dL AST 17 (15-37) U/L ALT 12 (10-53) U/L Alkaline Phosphatase 80 (45-117) U/L Total Creatine Kinase 101 (26-192) U/L CK-MB (CK-2) 2.3 (0.5-3.6) ng/mL Troponin I 0.05 (0.02-0.05) ng/mL Total Protein 7.8 (6.4-8.2) g/dL Albumin 3.6 (3.4-5.0) g/dL Imaging Data Radiologist's impression: Chest X-Ray 08/23/18 18:09 CONCLUSION: 1. No acute abnormality or significant interval change. ECG Data EKG Prior to Arrival: No Attestation: I personally reviewed and interpreted this ECG as follows: Interpretation: ECG shows tachycardia at a rate of 132, no ST elevation or depression Discharge Plan Discharge Disposition Patient Disposition: ED Admit(ED Internal Use Only) Discharge Condition Condition: Stable Discharge Order Discharge Orders: ED Use Only Admit Order (Routine); Ordered 08/23/18 Ordered By: Roshni Russ Discharge Details Diagnosis: Atrial fibrillation, Atypical chest pain Physicians Team ED Provider: Roshni Russ Primary Care Provider: Marcus Campos Attending Provider: Marie Ochoa Discharge Interventions Interventions: Vital Signs Last Done: 08/23/18 18:00 Status ED Status: Admitted Observation Patient
[2018-08-23 22:06] LABS: Troponin I 0.04 ng/mL (0.02-0.05)
[2018-08-24 02:21] LABS: Troponin I 0.17 ng/mL (0.02-0.05)
--- NOTE | 2018-08-24 08:38 | P.HPCA ---
History of Present Illness Service: Chest pain service Primary Care Physician: Marcus Campos DO Cardiology Dr. Gillespie Renal Dr. Combs Chief Complaint: Fast heart rate, palpitations, chest pain History of Present Illness: Very pleasant 62-year-old black lady with a complex medical history. In summary her pertinent history began with palpitations and a fast heart rate just at the completion of her dialysis. She subsequently had some chest discomfort and presented to the emergency room. Her renal failure dates back to a renal transplant in 2009 with subsequent transplant failure. She is now been on dialysis for about 2 years. She has a long-standing history of hypertension which is been somewhat difficult to control. And she has a documented history of pulmonary hypertension documented by catheterization earlier this year. At the same catheterization she was shown to have no significant coronary artery disease only mild to moderate disease. She also has a history of congestive heart failure possibly secondary to her pulmonary hypertension. Since admission to the emergency room her heart rate has slowed and her chest pain has abated. She showed a mild bump in troponin II 0.17 with a third set dropping 2.16 and currently pending a fourth set. Since her heart rate has slowed and her chest pain has abated she is desirous of being able to go home. She has excellent outpatient coverage between Dr. Chavez for cardiology and Dr. Mackenzie Conley for her renal problems and so if her blood pressure is brought down and her troponin has dropped I explained that discharge would be appropriate. Review of Systems All other systems reviewed negative except as stated in HPI PMFSH - History History Provided By: Patient - Medical History Medical History: Medical History (Last Reviewed 08/23/18 @ 19:57 by Roshni Russ MD) Acute renal failure on dialysis Afib Anxiety CHF (congestive heart failure) Depression Fistula Herniated disc Hypertension Kidney transplant complication Nodule of kidney Transfusion history - Surgical History Surgical History: Surgical History (Last Reviewed 08/23/18 @ 19:57 by Roshni Russ MD) History of partial hysterectomy Kidney transplant recipient - Family History Family History: Family History (Last Reviewed 08/23/18 @ 19:57 by Roshni Russ MD) Mother Stroke Heart attack ESRD on dialysis - Tobacco History Second Hand Smoke Exposure: No Tobacco Use In Past 30 Days: No Smoking Status: Never smoker - Alcohol History How Often Do You Have a Drink Containing Alcohol: Never - Substance Use History Substance History: No History of Abuse - Travel History History of Recent Travel: No Recent Travel in the [place] Within the Last 8 Weeks: No Recent Travel Out of the Country Within the Last 8 Weeks: No - Immunization History Tetanus Immunization: <5 Years Medications and Allergies Active Medications: Active Medications Calcium Acetate (Phoslo) 1,334 mg PO DIRECTED [facility] Cinacalcet (Sensipar) 30 mg PO DAILY [facility] Diltiazem HCl (Cardizem Cd 24hr) 180 mg PO DAILY [facility] Furosemide (Lasix) 40 mg PO DAILY PRN PRN Reason: Dizziness Hydralazine HCl (Apresoline) 100 mg PO TID [facility] Lisinopril (Prinivil) 20 mg PO BID [facility] Metoprolol Tartrate (Lopressor) 100 mg PO BID [facility] Minoxidil (Loniten) 5 mg PO BID [facility] Non-Formulary Medication (Diltiazem Hcl [Diltiazem Hcl]) 180 mg PO DAILY [facility] Non-Formulary Medication (B Complex-Vitamin C-Folic Acid [Dialyvite]) 1 tab PO DAILY [facility] Sevelamer Carbonate (Renvela) 2,400 mg PO QID [facility] Sodium Chloride (Ns Flush) 2 ml IV.FLUSH BID [facility] Last Admin: 08/23/18 21:18 Dose: 2 ml Sodium Chloride (Ns Flush) 2 ml IV.FLUSH PRN PRN PRN Reason: FLUSH AFTER USING IV ACCESS Allergies Allergy/AdvReac Type Severity Reaction Status Date / Time adhesive Allergy Severe BLISTERS Verified 05/19/18 20:06 chlorpheniramine Allergy Severe Hives Verified 05/19/18 20:06 Home Medications Medication Instructions Recorded Confirmed Type B complex-vitamin C-folic acid 1 tab PO DAILY 05/19/18 08/23/18 History [Dialyvite] calcium acetate 1,334 mg DIRECTED 05/19/18 08/23/18 History cinacalcet [Sensipar] 0 mg PO DAILY 05/19/18 08/23/18 History clonidine HCl 0.1 mg PO PRN 05/19/18 08/23/18 History diltiazem HCl 180 mg PO DAILY 05/19/18 08/23/18 History furosemide 40 mg PO DAILY PRN 05/19/18 08/23/18 History lisinopril 20 mg PO DAILY 05/19/18 08/23/18 History metoprolol tartrate 100 mg PO BID 05/19/18 08/23/18 History minoxidil 5 mg PO BID 05/19/18 08/23/18 History sevelamer carbonate [Renvela] 2,400 mg PO QID 05/19/18 08/23/18 History warfarin 10 mg PO DAILY 05/19/18 08/23/18 History B complex-vitamin C-folic acid 1 tab PO DAILY 06/17/18 08/23/18 History [Dialyvite] lisinopril 20 mg PO BID 06/17/18 08/23/18 History hydralazine 100 mg PO TID 06/27/18 08/23/18 History Exam Vital signs: Vital Signs 08/23/18 17:58 08/23/18 18:00 08/23/18 18:26 Temperature 98.1 F Pulse Rate 134 H 132 H 128 H Respiratory Rate 20 18 Blood Pressure 72/48 L 94/59 L Pulse Oximetry 96 99 99 08/23/18 18:28 08/23/18 19:13 08/23/18 19:50 Temperature Pulse Rate 68 90 Respiratory Rate 18 18 Blood Pressure 104/61 134/79 Pulse Oximetry 98 99 98 08/23/18 23:54 08/24/18 00:44 08/24/18 04:04 Temperature 98.6 F Pulse Rate 83 83 Respiratory Rate 18 Blood Pressure 168/102 H Pulse Oximetry 95 08/24/18 04:16 08/24/18 04:38 08/24/18 07:26 Temperature 98.3 F 98.3 F Pulse Rate 82 87 Respiratory Rate 16 17 20 Blood Pressure 155/91 H 176/106 H 171/100 H Pulse Oximetry 95 97 97 Intake & Output 08/23/18 08/24/18 08/24/18 18:59 06:59 18:59 Weight 56.699 kg Narrative: Well-nourished well-developed lady sleeping quietly when I entered the room Skin is warm and dry with normal texture and turgor. Head normocephalic atraumatic hair normal distribution Eyes PERRLA EOMI, bilateral cataracts, sclera slightly muddy Mouth mucous membranes moist tongue well papillated no lesions (was asleep with gum in her mouth) Neck supple. JVD to the angle of the jaw at a 45 degree upright position. There is a bruit in the right carotid. Questionable thyroid nodules are palpated. Chest reveals mildly diminished breath sounds with slight rales at the left base Cardiovascular the PMI is displaced to the left axillary line with a diffuse impulse. Rate has slowed. There is a 2/6 systolic murmur radiating from the apex towards the right sternal border. There is no gallop or rub. Abdomen soft slightly tender in the mid right upper epigastrium with a liver margin palpable. Otherwise no guarding or rebound no other masses palpated Extremities fistula in the right upper arm. No clubbing cyanosis. Pulses are intact Neurologic cranial nerves are grossly intact with symmetric and equal upper and lower extremity strength. Memory is good. Psychiatric she appears to be appropriate, interactive in a positive manner, and to show good insight. Results 08/23/18 18:15 08/23/18 18:15 Cardiac Enzymes 08/23/18 08/23/18 08/24/18 Range/Units 18:15 21:20 01:30 AST 17 (15-37) U/L CK-MB (CK-2) 2.3 (0.5-3.6) ng/mL Troponin I 0.05 0.04 0.17 H D (0.02-0.05) ng/mL 08/24/18 Range/Units 06:35 AST (15-37) U/L CK-MB (CK-2) (0.5-3.6) ng/mL Troponin I 0.16 H (0.02-0.05) ng/mL Coagulation 08/23/18 Range/Units 18:15 PT 15.4 H (9.8-11.6) sec APTT 30.8 (23.4-31.7) sec CBC 08/23/18 Range/Units 18:15 WBC 6.7 (4.0-11.0) th/mm3 RBC 3.80 L (4.00-5.30) mil/mm3 Hgb 12.1 (11.6-15.3) gm/dL Hct 36.6 (35.0-46.0) % Plt Count 234 (150-450) th/mm3 Neut # (Auto) 2.5 (1.8-7.7) th/mm3 Lymph # (Auto) 3.2 (1.0-4.8) th/mm3 Forrest # (Auto) 0.4 (0.0-0.9) th/mm3 Eos # (Auto) 0.5 H (0.0-0.4) th/mm3 Baso # (Auto) 0.0 (0.0-0.2) th/mm3 Comprehensive Metabolic Panel 08/23/18 Range/Units 18:15 Sodium 142 (136-145) meq/L Potassium 3.0 L (3.5-5.1) meq/L Chloride 101 (98-107) meq/L Carbon Dioxide 28.3 (21.0-32.0) meq/L BUN 35 H (7-18) mg/dL Creatinine 7.25 H (0.50-1.00) mg/dL Calcium 8.8 (8.5-10.1) mg/dL AST 17 (15-37) U/L ALT 12 (10-53) U/L Alkaline Phosphatase 80 (45-117) U/L Total Protein 7.8 (6.4-8.2) g/dL Albumin 3.6 (3.4-5.0) g/dL Intake and Output 08/23/18 08/24/18 08/24/18 22:59 06:59 14:59 Other: Weight 56.699 kg - Imaging and Cardiology Imaging: Impressions Chest X-Ray 08/23/18 18:09 CONCLUSION: 1. No acute abnormality or significant interval change. Caprini VTE Risk Assessment Caprini VTE Risk Assessment: Moderate/High Risk (score >= 2) (Patient is on Coumadin) Caprini Risk Assessment Model: Point Value = 1 Point Value = 2 Point Value = 3 Point Value = 5 Age 41-60 Minor surgery BMI > 25 kg/m2 Swollen legs Varicose veins or History of unexplained or recurrent spontaneous Oral contraceptives or hormone replacement Sepsis (< 1 month) Serious lung disease, including pneumonia (< 1 month) Abnormal pulmonary function Acute myocardial infarction Congestive heart failure (< 1 month) History of inflammatory bowel disease Medical patient at bed rest Age 61-74 Arthroscopic surgery Major open surgery (> 45 min) Laparoscopic surgery (> 45 min) Malignancy Confined to bed (> 72 hours) Immobilizing plaster cast Central venous access Age >= 75 History of VTE Family history of VTE Factor V Leiden Prothrombin [id number] Lupus anticoagulant Anticardiolipin antibodies Elevated serum homocysteine Heparin-induced thrombocytopenia Other congenital or acquired thrombophilia Stroke (< 1 month) Elective arthroplasty Hip, pelvis, or leg fracture Acute spinal cord injury (< 1 month) Prophylaxis Regimen: Total Risk Factor Score Risk Level Prophylaxis Regimen 0-1 Low Early ambulation 2 Moderate Order ONE of the following: *Sequential Compression Device (SCD) *Heparin 5000 units SQ BID 3-4 Higher Order ONE of the following medications: *Heparin 5000 units SQ TID *Enoxaparin/Lovenox 40 mg SQ daily (WT < 150 kg, CrCl > 30 mL/min) *Enoxaparin/Lovenox 30 mg SQ daily (WT < 150 kg, CrCl > 10-29 mL/min) *Enoxaparin/Lovenox 30 mg SQ BID (WT < 150 kg, CrCl > 30 mL/min) AND/OR *Sequential Compression Device (SCD) 5 or more Highest Order ONE of the following medications: *Heparin 5000 units SQ TID (Preferred with Epidurals) *Enoxaparin/Lovenox 40 mg SQ daily (WT < 150 kg, CrCl > 30 mL/min) *Enoxaparin/Lovenox 30 mg SQ daily (WT < 150 kg, CrCl > 10-29 mL/min) *Enoxaparin/Lovenox 30 mg SQ BID (WT < 150 kg, CrCl > 30 mL/min) AND *Sequential Compression Device (SCD) Assessment and Plan - Plan This patient presented with chest pain and in spite of the fact that she had a relatively recent catheterization 3 months ago which showed no significant coronary artery disease she was transferred to the chest pain center for evaluation. She has known pulmonary hypertension, congestive heart failure, hypertension poorly controlled, and atrial fibrillation developing RVR while on dialysis. This is most likely cause of her current chest discomfort which resolved shortly after her admission to the emergency room. She is ruled out for ACS but did show a minor bump in troponin secondary to her fast heart rate. As soon as her blood pressure is controlled and a repeat troponin is obtained she will be discharged back to her for her renal. No further changes in her medication will be undertaken and she will follow up with dialysis on Sunday morning as scheduled. Code Status: Full code Discussed Condition With: Discussed at length with patient - Attending Attestation I attest that this patient's diagnosis and evaluation is appropriate for the current setting and testing H&P: Quality - VTE Deep Vein Thrombosis/Pulmonary Embolism Present on Admission: No
[2018-08-24] MEDS ORDERED: Vitamin B Complex/Vit C/Folic Tablet PO SCH (09:00)
[2018-08-24] MEDS ORDERED: Non-Formulary Drug (Diltiazem Hcl [Diltiazem Hcl] 180 MG) PO SCH (09:00)
[2018-08-24] MEDS ORDERED: Metoprolol Tartrate 100 MG Tablet PO SCH (09:00)
[2018-08-24] MEDS ORDERED: Lisinopril 20 MG Tablet PO SCH (09:00)
[2018-08-24] MEDS ORDERED: Minoxidil 2.5 MG Tablet PO SCH (09:00)
[2018-08-24] MEDS ORDERED: Furosemide 40 MG Tablet PO SCH (09:00)
[2018-08-24] MEDS ORDERED: Calcium Acetate 667 MG Capsule PO SCH (12:00)
--- NOTE | 2018-08-24 14:15 | ECG ---
Date Performed: 08/24/2018 Time Performed: 00:04:06 PTAGE: 62 years EKG: Sinus rhythm WITH FIRST DEGREE AV BLOCK Poor R wave progression ABNORMAL ECG No significant change PREVIOUS TRACING : 08/23/2018 22.11 DOCTOR: Ti Inman Interpretating Date/Time 08/24/2018 14:13:24
--- NOTE | 2018-08-24 14:16 | ECG ---
Date Performed: 08/23/2018 Time Performed: 22:11:53 PTAGE: 62 years EKG: Sinus rhythm WITH FIRST DEGREE AV BLOCK MODERATE VOLTAGE CRITERIA FOR LVH, CONSIDER NORMAL VARIANT POOR R WAVE ND OGRESSION OR POSSIBLE SEPTAL MYOCARDIAL INFARCTION ABNORMAL ECG PREVIOUS TRACING : 08/23/2018 18.06 DOCTOR: Ti Inman Interpretating Date/Time 08/24/2018 14:14:27
--- NOTE | 2018-08-24 14:17 | ECG ---
Date Performed: 08/23/2018 Time Performed: 18:06:29 PTAGE: 62 years EKG: ECTOPIC ATRIAL TACHYCARDIA SEPTAL MYOCARDIAL INFARCTION ABNORMAL ECG Tachycardia with more significant ST depressions in prior PREVIOUS TRACING : 05/19/2018 12.46 DOCTOR: Ti Inman Interpretating Date/Time 08/24/2018 14:16:25
[2018-08-24] MEDS ORDERED: dilTIAZem CD 180 MG Capsule PO SCH (21:00)
== END 2018-08-24 12:22 | disposition home or self-care (01) ==
LOC: NEDA 17:56 → NEPC 17:56 → NEDA 23:29 → NEPGCP 23:44
PROVIDERS: ADMIT Internal Medicine Interventional Cardiology; ATTEND Internal Medicine Interventional Cardiology
DX: F32.9 Major depressive disorder, single episode, unspecified; Z90.710 Acquired absence of both cervix and uterus; Z99.2 Dependence on renal dialysis; I50.9 Heart failure, unspecified; I48.91 Unspecified atrial fibrillation; R07.9 Chest pain, unspecified; Z79.01 Long term (current) use of anticoagulants; F41.9 Anxiety disorder, unspecified; N17.9 Acute kidney failure, unspecified; Z82.49 Family history of ischemic heart disease and other diseases of the circulatory system; I13.2 Hypertensive heart and chronic kidney disease with heart failure and with stage 5 chronic kidney disease, or end stage renal disease; N18.6 End stage renal disease
CPT/HCPCS: 71010; 71045; 80053; 82550; 82552; 84484; 85025; 85610; 85730; 90774; 90784; 93005; 96374; 99285; C8952; G0378